=== PATIENT | female | born 1995 | race Caucasian/White ===

== ENCOUNTER 2020-05-13 09:58 | Emergency (ER) | payer OTHER, SELFPAY ==
[2020-05-13] VITALS (10 sets, daily range): BP systolic 121–151; BP diastolic 81–96; PULSE 72–90; RESP 16–19; TEMP 36.5; O2SAT 98–100
--- NOTE | ~2020-05-13 | XR_ITS ---
EXAMINATION: XR chest 1V portable EXAM DATE: 05/13/2020 10:45 INDICATION: Chest pain. TECHNIQUE: Portable AP frontal chest x-ray was obtained. Comparison is made to prior examination from . FINDINGS: The lungs are clear. There are no pleural effusions. The cardiomediastinal silhouette is within normal limits. There is no pneumothorax suspected. The bones and soft tissues are unremarkab le. IMPRESSION: No acute cardiopulmonary findings. Reviewed, dictated and finalized at location A. JACK OPERATOR
--- NOTE | 2020-05-13 10:06 | ECG_ITS ---
Measurements Intervals [place] Rate: 85 P: 31 [place]: 174 QRS: 22 QRSD: 85 T: 29 QT: 378 QTc: 452 Interpretive Statements SINUS RHYTHM DELAYED PRECORDIAL R/S TRANSITION BASELINE ARTIFACT- I, II, III, AVR, AVF BORDERLINE ECG Electronically Signed On 05-13-2020 11:41:46 BOTTOM FINISHER by Jairo Kendrick D.O.
[2020-05-13 10:22] LABS: Basophils Percent Auto 0.2 % (0.2-1.2); Eosinophils Absolute Auto 0.1 K/mm3 (0-0.3); Eosinophils Percent Auto 1.1 % (0-4.4); Hematocrit 43.1 % (37.0-47.0); Hemoglobin 14.8 g/dL (12.0-15.0); Immature Granulocyte Absolute 0.02 K/mm3 (0.00-0.031); Immature Granulocyte Percent A 0.2 % (0-0.5); Lymphocytes Absolute Auto 3.26 K/mm3 (0.9-3.2); Lymphocytes Percent Auto 32.3 % (18.3-44.2); Mean Corpuscular HGB Conc 34.3 g/dl (32-36); Mean Corpuscular Hemoglobin 32.5 pg (26-34); Mean Corpuscular Volume 94.7 fl (80-100); Mean Platelet Volume 10.2 fl (7.4-10.4); Monocytes Absolute Auto 0.7 K/mm3 (0.1-0.6); Monocytes Percent Auto 6.9 % (2.6-8.5); Neutrophils Percent Auto 59.3 % (45.5-73.1); Platelet Count Result 322 k/mm3 (150-375); Red Blood Count 4.55 M/mm3 (4.2-5.4); Red Cell Distribution Width 12.2 % (11.5-14.5); White Blood Count 10.1 K/mm3 (4.5-10.0)
[2020-05-13] MEDS: ASPIRIN 81 MG CHEWABLE TABLET 324 MG PO (10:23)
[2020-05-13 10:30] LABS: INR 0.9; Prothrombin Time 12.2 Seconds (11.1-14.7)
[2020-05-13 10:31] LABS: Partial Thromboplastin Time 30.9 SECONDS (22.3-36.8)
[2020-05-13 10:39] LABS: Anion Gap 9 mmol/L (8-16); Blood Urea Nitrogen 10 mg/dL (7-17); Calcium 9.4 mg/dL (8.4-10.2); Carbon Dioxide 29 mmol/L (22-30); Chloride 102 mmol/L (98-107); Estimated CRCL calculation 143 ml/min; Estimated Glomerular Filt Rate > 60; Glucose 93 mg/dL (65-105); Sodium 140 mmol/L (137-145)
[2020-05-13 10:50] LABS: Troponin I < 0.012 ng/mL (0.000-0.034)
--- NOTE | 2020-05-13 10:54 | ED.CHESTPAIN ---
HPI - Chest Pain General Chief Complaint: Chest Pain <LACHO Hadley Last Filed: 05/13/20 13:54> Stated Complaint: chest tightness, uri symptoms <LACHO Hadley Last Filed: 05/13/20 13:54> Time Seen by Provider: 05/13/20 10:14 <LACHO Hadley Last Filed: 05/13/20 13:54> Source: patient <LACHO Hadley Last Filed: 05/13/20 13:54> Mode of arrival: ambulatory <LACHO Hadley Last Filed: 05/13/20 13:54> Limitations: no limitations <LACHO Hadley Last Filed: 05/13/20 13:54> History of Present Illness HPI narrative: This is a 25 year old female that presents to the ER for right sided upper abdominal/chest pain that started yesterday. Reports the pain is sharp in nature and happens with deep breathing. Does smoke E cigarettes and currently has an IUD. Denies fever, cough, shortness of breath, vomiting, lower extremity edema, or recent travel or surgery. <LACHO Hadley Last Filed: 05/13/20 13:54> Related Data Home Medications: Home Medications Medication Instructions Recorded Confirmed alprazolam 0.25 mg tablet 0.25 mg PO DAILY PRN 01/28/20 01/28/20 buspirone 5 mg tablet 5 mg PO BID 01/28/20 01/28/20 glycopyrrolate 2 mg tablet 2 mg PO BID-TID PRN 01/28/20 01/28/20 sertraline 50 mg tablet 100 mg PO DAILY tablet 01/28/20 01/28/20 <LACHO Hadley Last Filed: 05/13/20 13:54> Allergies/Adverse Reactions: Allergies Allergy/AdvReac Type Severity Reaction Status Date / Time No Known Allergies Allergy Mild Unverified 05/13/20 10:17 <LACHO Hadley Last Filed: 05/13/20 13:54> Review of Systems Review of Systems: Narrative: CONSTITUTIONAL: Denies fever ENT: Denies rhinorrhea, congestion, sore throat CARDIOVASCULAR: Reports chest pain. Denies palpitations, or edema. RESPIRATORY: Denies cough or dyspnea. GASTROINTESTINAL: Denies abdominal pain, nausea, vomiting <Cass Cardoso PA-C - Last Filed: 05/13/20 13:54> All systems reviewed & are unremarkable except as noted in HPI and below <Cass Cardoso PA-C - Last Filed: 05/13/20 13:54> [facility] Past Medical History Medical History: Medical History (Updated 05/13/20 @ 13:35 by Cass Cardoso PA-C) History of anxiety <Cass Cardoso PA-C - Last Filed: 05/13/20 13:54> Surgical History Surgical History: Surgical History (Updated 01/06/20 @ 13:57 by Echo Martins, [facility]) Complication of cardiovascular infusion catheter History of appendectomy History of cardiac radiofrequency ablation <Cass Cardoso PA-C - Last Filed: 05/13/20 13:54> Family History Family History: Family History (Updated 11/24/18 @ 11:06 by DOCTOR UNKNOWN) Father Hypertension Family history of elevated blood lipids Family history of hypercholesterolemia Other Acute myocardial infarction Cerebrovascular accident Family history of cardiovascular disease <Cass Cardoso PA-C - Last Filed: 05/13/20 13:54> Social History Social History: Social History Smoking status: Current every day smoker Alcohol intake: current Gender identity (if verbalized by the patient): Female <Cass Cardoso PA-C - Last Filed: 05/13/20 13:54> Exam Narrative: Exam Narrative: GENERAL: Well-appearing, obese, and in no acute distress. HEAD: Normocephalic, atraumatic. EYES: EOMI. ENT: Nares clear, no rhinorrhea or epistaxis. Mucous membranes moist. Oropharynx without tonsillar hypertrophy exudate or other lesions. Bilateral TMs pearly benitez non-bulging NECK: Supple. No adenopathy or masses. CHEST: Clear to auscultation. No respiratory distress. No wheezes rales or rhonchi HEART: Regular rate and rhythm. No murmur heard. Normal peripheral pulses. ABDOMEN: Soft, nontender, nondistended, normal active bowel sounds. No CVA tenderness EXTREMITIES: Normal range of motion. No edema. SKIN: Warm, dry, no rash. NEURO: No focal deficits. Alert
[2020-05-13 11:24] LABS: Alanine Aminotransferase 20 U/L (4-35); Albumin Level 4.7 g/dL (3.5-5.1); Alkaline Phosphatase 93 U/L (38-126); Aspartate Amino Transferase 26 U/L (14-36); Bilirubin,Total 0.6 mg/dL (0.2-1.3); D Dimer 0.27 ug/mL (<0.48); Lipase 123 U/L (23-300)
[2020-05-13] MEDS: KETOROLAC 15 MG/ML VIAL (*BKC) IV PUSH (11:43)
[2020-05-13 13:39] LABS: Troponin I < 0.012 ng/mL (0.000-0.034)
== END 2020-05-13 14:22 | disposition home or self-care (01) ==
PROVIDERS: Physician Assistant; Emergency Provider General Practice; PCP Family Medicine
DX: R07.1 Chest pain on breathing (principal); F17.290 Nicotine dependence, other tobacco product, uncomplicated; Z97.5 Presence of (intrauterine) contraceptive device; R94.31 Abnormal electrocardiogram [ECG] [EKG]
CPT/HCPCS: 36415; 71045; 80048; 80076; 81025; 83690; 84484; 85025; 85380; 85610; 85730; 93005; 96374; 99284; A9270; J1885

== ENCOUNTER 2021-03-06 10:07 | Observation (INO) | payer OTHER, SELFPAY ==
[2021-03-06] VITALS (15 sets, daily range): BP systolic 100–138; BP diastolic 70–107; PULSE 80–164; RESP 12–24; TEMP 36.6–36.9; O2SAT 98–100; BMI 47.4
--- NOTE | ~2021-03-06 | XR_ITS ---
EXAMINATION: XR chest 2V 03/06/2021 11:12 INDICATION: Chest palpitations PROCEDURE: 2 view chest COMPARISON: 05/13/2020 FINDINGS: The lungs are clear. The cardiomediastinal silhouette is within normal limits. There are no pleural effusions. There is no pneumothorax suspected. IMPRESSION: 1: NO ACUTE CARDIOPULMONARY DISEASE. Reviewed, dictated and finalized at location B.
--- NOTE | 2021-03-06 10:15 | ECG_ITS ---
Measurements Intervals [place] Rate: 162 P: [place]: 0 QRS: 48 QRSD: 86 T: 29 QT: 253 QTc: 415 Interpretive Statements ATRIAL FLUTTER/TACHYCARDIA WITH RAPID VENTRICULAR RESPONSE VENTRICULAR PREMATURE COMPLEXES LOW QRS VOLTAGE IN PRECORDIAL LEADS BORDERLINE R WAVE PROGRESSION, ANTERIOR LEADS CONSIDER INFERIOR INFARCT, AGE INDETERMINATE ABNORMAL ECG Electronically Signed On 03-06-2021 15:51:50 CDT by Jairo Kendrick D.O.
[2021-03-06] MEDS: dilTIAZem HCl INJ 25 MG/5 ML VIAL 15 MG IV PUSH (10:41)
[2021-03-06 10:52] LABS: Basophils Percent Auto 0.2 % (0.2-1.2); Eosinophils Absolute Auto 0.1 K/mm3 (0-0.3); Hematocrit 44.5 % (37.0-47.0); Hemoglobin 15.7 g/dL (12.0-15.0); Immature Granulocyte Absolute 0.04 K/mm3 (0.00-0.031); Immature Granulocyte Percent A 0.4 % (0-0.5); Lymphocytes Absolute Auto 3.45 K/mm3 (0.9-3.2); Lymphocytes Percent Auto 34.2 % (18.3-44.2); Mean Corpuscular HGB Conc 35.3 g/dl (32-36); Mean Corpuscular Hemoglobin 33.3 pg (26-34); Mean Corpuscular Volume 94.3 fl (80-100); Mean Platelet Volume 10.3 fl (7.4-10.4); Monocytes Absolute Auto 0.5 K/mm3 (0.1-0.6); Monocytes Percent Auto 4.9 % (2.6-8.5); Neutrophils Percent Auto 59.3 % (45.5-73.1); Platelet Count Result 333 k/mm3 (150-375); Red Blood Count 4.72 M/mm3 (4.2-5.4); Red Cell Distribution Width 11.9 % (11.5-14.5); White Blood Count 10.1 K/mm3 (4.5-10.0)
[2021-03-06 11:01] LABS: INR 0.9; Prothrombin Time 11.8 Seconds (11.1-14.7)
[2021-03-06 11:02] LABS: Partial Thromboplastin Time 29.9 SECONDS (22.3-36.8)
[2021-03-06 11:03] LABS: Anion Gap 10 mmol/L (8-16); Blood Urea Nitrogen 8 mg/dL (7-17); Calcium 9.4 mg/dL (8.4-10.2); Carbon Dioxide 22 mmol/L (22-30); Chloride 107 mmol/L (98-107); Estimated CRCL calculation 170 ml/min; Estimated Glomerular Filt Rate > 60; Glucose 116 mg/dL (65-110); Potassium 4.2 mmol/L (3.4-5.0); Sodium 139 mmol/L (137-145)
[2021-03-06 11:14] LABS: Troponin I < 0.012 ng/mL (0.000-0.034)
[2021-03-06] MEDS: METOPROLOL TARTRATE INJ 5 MG/5 ML VIAL IV PUSH (11:16)
--- NOTE | 2021-03-06 11:22 | ED.GENADULT ---
HPI - General Adult General Chief complaint: Arrhythmia/Palpitations Stated complaint: sob/palpitations Time Seen by Provider: 03/06/21 10:25 History of Present Illness HPI narrative: Patient is a 26-year-old female who presents ER with palpitations. Reports it began last night but she just tried to sleep through them. They are persistent today so she have to come to the ER for further evaluation. She reports has been having palpitations over the last week and has been getting lightheaded with them. She has history of SVT and has had a cardiac ablation. She sees Dr. Kendrick. Reports taking flecainide to help slow down her rate this morning. She has no chest pain or chest pressure. No nausea or vomiting. She is anxious. Her cardiac ablation was 4 years ago. Currently wearing a Holter monitor. Related Data Home Medications Medication Instructions Recorded Confirmed sertraline 50 mg tablet 100 mg PO DAILY tablet 01/28/20 02/08/21 alprazolam 0.25 mg tablet 0.5 mg PO DAILY PRN tablet 02/08/21 02/08/21 buspirone 5 mg tablet 10 mg PO BID tablet 02/08/21 02/08/21 glycopyrrolate 2 mg tablet 1 mg PO BID PRN tablet 02/08/21 02/08/21 Allergies Allergy/AdvReac Type Severity Reaction Status Date / Time No Known Allergies Allergy Mild Verified 02/08/21 14:22 Review of Systems Review of Systems: All systems reviewed & are unremarkable except as noted in HPI and below Constitutional: Constitutional: Denies chills, Denies fever(s) and Denies weakness ENT: Denies nasal congestion and Denies sore throat Cardiovascular: Cardiovascular: Denies chest pain, Reports rapid heart rate and Denies radiating jaw, neck or arm pain Respiratory: Respiratory: Denies cough, Denies dyspnea and Denies wheezing Gastrointestinal: Gastrointestinal: Denies abdominal pain, Denies nausea and Denies vomiting Neurologic: Reports dizziness, Denies focal weakness and Denies numbness Psychiatric: Psychiatric: Reports anxiety PMFSH Past Medical History Medical History (Updated 03/06/21 @ 17:08 by Mustapha Hines MD) History of anxiety SVT (supraventricular tachycardia) Surgical History Surgical History Complication of cardiovascular infusion catheter History of appendectomy History of cardiac radiofrequency ablation Family History Family History Father Hypertension Family history of elevated blood lipids Family history of hypercholesterolemia Other Acute myocardial infarction Cerebrovascular accident Family history of cardiovascular disease Social History Social History Smoking status: Never smoker Tobacco type: e-cigarettes/vaping Alcohol intake: current Gender identity (if verbalized by the patient): Female Exam Narrative: GENERAL: Anxious-appearing, well-nourished, and in mild distress. HEAD: Normocephalic, atraumatic. ENT: Mucous membranes moist. NECK: Supple. CHEST: Clear to auscultation. No respiratory distress. HEART: Tachycardic and irregular. Normal peripheral pulses. ABDOMEN: Soft, nontender, nondistended. EXTREMITIES: Normal range of motion. No edema. SKIN: Warm, dry, no rash. NEURO: Alert and oriented x3. PSYCH: Normal mood and affect. Course Course Emergency Course: Difficult to discern if patient is having atrial flutter or atrial fibrillation. Patient received diltiazem 15 mg IV push, metoprolol 5 mg IV, and flecainide 50 mg orally. No significant response. Patient started on diltiazem drip. Discussed case with Dr. Azul who is excepted the patient primarily for care. Vital Signs Vital signs: Vital Signs Temperature 98 F 03/06/21 10:36 Pulse Rate 164 H 03/06/21 10:36 Respiratory Rate 18 03/06/21 10:36 Blood Pressure 131/107 H 03/06/21 10:36 Pulse Oximetry 100 03/06/21 10:36 Temperature 98 F 03/06/21 10
[2021-03-06] MEDS: FLECAINIDE ACETATE 50 MG TABLET PO (12:29)
--- NOTE | 2021-03-06 15:29 | PC.NURSE ---
Called lab to add on MG
[2021-03-06 16:06] LABS: Magnesium 1.9 mg/dL (1.6-2.3)
[2021-03-06 16:10] LABS: Troponin I 0.028 ng/mL (0.000-0.034)
--- NOTE | 2021-03-06 16:46 | PM.IMHP ---
H&P: HPI History of Present Illness Date/Time: 03/06/21 16:46 25 yr old woman who is my regular cardiology patient presented to ED with symptoms of sob and dizziness. She has a history of radiofrequency ablation for PAT by Dr. Chaidez at [facility], obesity, anxiety. Her is at bedside in ED. States that last night she noted abrupt onset of dizziness and sob. She took Flecainide 50 mg as she is using it as a pill in a pocket but her symptoms persisted. This morning she took another dose of Flecainide and came in to ED for evaluation. She was noted to be in atrial tachycardia at 160 bpm. She was given Flecainide 50 mg dose and started on Cardizem drip. She is still in atrial tachycardia at 110-130 bpm. She used to be on Coreg and Flecainide even after ablation since she was told she had a weak heart at that time. She admits to having anxiety/panic attacks on Sertaline. Admits to snoring, and some daytime sleepiness. Denies chest pain, orthopnea, PND, edema, dizziness. 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 05/13/20 EKG: Sinus rhythm, delayed precordial R/S transition. EKG (Sinus rhythm at 93 bpm, minimal q waves in inferior leads.) - 01/29/2019 EKG (Sinus rhythm.) - 11/13/2018 EVR (30 day event monitor: Sinus rhythm, HR range 50-169 bpm; average 80 bpm; <1% PAC's and 1% PVC's.) - 11/13/2018 Ablations (PAT ablation) with Dr. Chaidez and [facility]. - 10/2015 Chief Complaint: SOB, dizziness Review of Systems Review of Systems: All systems reviewed & are unremarkable except as noted in HPI and below Constitutional: Constitutional: Reports as per HPI, Denies chills, Reports fatigue and Denies fever(s) Cardiovascular: Cardiovascular: Reports as per HPI, Denies chest pain, Denies irregular heart rhythm, Denies leg edema and Reports lightheadedness Respiratory: Respiratory: Reports as per HPI and Reports dyspnea Gastrointestinal: Gastrointestinal: Reports as per HPI and Denies abdominal pain Genitourinary: Genitourinary: Reports as per HPI and Denies dysuria Musculoskeletal: Musculoskeletal: Reports as per HPI Neurologic: Reports as per HPI, Reports dizziness and Denies syncope [facility] Past Medical History Medical History (Updated 03/06/21 @ 16:52 by Jairo Kendrick DO) History of anxiety SVT (supraventricular tachycardia) Surgical History Surgical History Complication of cardiovascular infusion catheter History of appendectomy History of cardiac radiofrequency ablation Family History Family History Father Hypertension Family history of elevated blood lipids Family history of hypercholesterolemia Other Acute myocardial infarction Cerebrovascular accident Family history of cardiovascular disease Social History Social History Smoking status: Never smoker Tobacco type: e-cigarettes/vaping Alcohol intake: current Gender identity (if verbalized by the patient): Female Meds Home Medications and Allergies Home Medications Medication Instructions Recorded Confirmed Type sertraline 50 mg tablet 100 mg PO DAILY tablet 01/28/20 02/08/21 History alprazolam 0.25 mg tablet 0.5 mg PO DAILY PRN tablet 02/08/21 02/08/21 History buspirone 5 mg tablet 10 mg PO BID tablet 02/08/21 02/08/21 History flecainide 50 mg tablet 50 mg PO ONCE #30 tablet 02/08/21 02/08/21 Rx glycopyrrolate 2 mg tablet 1 mg PO BID PRN tablet 02/08/21 02/08/21 History Allergies Allergy/AdvReac Type Severity Reaction Status Date / Time No Known Allergies Allergy Mild Verified 02/08/21 14:22 Vital Signs Vital Signs - 24 hr 03/06/21 10:36 03/06/21 11:05 03/06/21 11:16 Temperature 98 F Pulse Rate 164 H 138 H 135 H Res
--- NOTE | 2021-03-06 17:55 | ADMGEN ---
This patient, Babs Toro, was admitted to IMU Room 210-01. Patient/family oriented to hospital policies and general routines including ID bracelet, bed and alarms, visiting hours, pain management, procedures, bathroom and other care routines, personal items, smoking policy, room service/diet, and visiting hours. Information on how to activate the Rapid Response Team has been discussed. Patient/Family are encouraged to report perceived risks to care and to ask questions if they do not understand what they are told or what they should do.
[2021-03-06] MEDS: METOPROLOL TARTRATE 25 MG TABLET PO (18:41)
[2021-03-06 19:03] LABS: Troponin I 0.027 ng/mL (0.000-0.034)
[2021-03-06] MEDS: FLECAINIDE ACETATE 100 MG TABLET PO (20:15)
[2021-03-06] MEDS: busPIRone HCL 10 MG TABLET PO (21:52)
[2021-03-06] MEDS: GLYCOPYRROLATE 1 MG TABLET PO (21:52)
[2021-03-07] VITALS (12 sets, daily range): BP systolic 105–135; BP diastolic 73; PULSE 69–115; RESP 14–20; TEMP 36.3–36.4; O2SAT 98–99
--- NOTE | 2021-03-07 | ECHO_ITS ---
Patient Info Name: Babs Toro Age: 26 years : 1995 Gender: Female Ht: 61 in Wt: 262 lbs BSA: 2.34 m2 HR: 91 bpm BP: 135 / 73 mmHg Exam Date: 03/07/2021 9:17 AM Exam Location: [facility] Pulmonary Patient Status: Inpatient Admit Date: 03/06/2021 Staff Ordering Physician: Jairo Kendrick DO Metal Tube Cutter: Larry Wagner, KIKI, RT Attending Provider: Jairo Kendrick DO Referring Physician: Aroldo GRACE; Exam Type: CA echo dop color flow w con Study Info Indications R00.2 - Palpitations Complete two-dimensional, color flow and Doppler transthoracic echocardiogram is performed with contrast to opacify the left ventricle and to improve the deliniation of the left ventricle endocardial borders. Summary 1. Left ventricular chamber dimension is normal. 2. Definity contrast administered improved wall motion interpretation. 3. Left ventricular systolic function is normal, estimated at 55-60%. 4. The left ventricular diastolic function is normal. 5. E/e' 5 is not elevated. Left Ventricle E/e' 5 is not elevated. Definity contrast administered improved wall motion interpretation. Left ventricular chamber dimension is normal. Left ventricular systolic function is normal, estimated at 55-60%. The left ventricular diastolic function is normal. Right Ventricle Right ventricular chamber dimension is normal. Right ventricular systolic function is normal. Left Atria Left atrial chamber dimension is normal. Right Atria Right atrial chamber dimension is normal. Aortic Valve The aortic valve is probable trileaflet. There is no aortic valve stenosis. There is no aortic valve regurgitation. Pulmonic Valve There is no pulmonic regurgitation. Mitral Valve There is no mitral valve stenosis. There is no mitral valve regurgitation. Tricuspid Valve There is no tricuspid valve regurgitation. Pericardium/Pleural There is no pericardial effusion. Inferior Vena Cava Normal inferior vena cava with >50% collapse upon inspiration consistent with normal right atrial pressure, 5 mmHg. Aorta The aortic root size at the sinus of Valsalva is normal. Left Ventricular Outflow Tract Name Value Normal LVOT 2D LVOT Diameter 2.14 cm Mitral Valve Name Value Normal MV Doppler MV Decel Shannon 585.41 cm/s2 MV PHT 0 s MV Area (PHT) 5.21 cm2 4.00-5.00 MV Diastolic Function MV E Peak Velocity 85.23 cm/s MV A Peak Velocity 0.62 cm/s MV E/A 137.31 MV Decel Time 0 s MV Annular TDI MV E/e' (Septal) 5.93 <=8.00 MV E/e' (Lateral) 4.97 <=8.00 MV E/e
[2021-03-07] MEDS: METOPROLOL TARTRATE 25 MG TABLET PO ×2 (00:09→05:20)
--- NOTE | 2021-03-07 01:57 | ECG_ITS ---
Measurements Intervals [place] Rate: 81 P: 42 [place]: 215 QRS: 52 QRSD: 102 T: 55 QT: 408 QTc: 475 Interpretive Statements SINUS RHYTHM WITH FIRST DEGREE AV BLOCK ATRIAL COUPLET, FREQUENT ATRIAL PREMATURE COMPLEXES AND VENTRICULAR PREMATURE COMPLEX BASELINE ARTIFACT- I, II, III, AVR, AVL, AVF ABNORMAL ECG Electronically Signed On 03-07-2021 6:09:32 CDT by Jairo Kendrick D.O.
[2021-03-07] MEDS: busPIRone HCL 10 MG TABLET PO (08:53)
[2021-03-07] MEDS: FLECAINIDE ACETATE 100 MG TABLET PO (08:53)
[2021-03-07] MEDS: GLYCOPYRROLATE 1 MG TABLET PO (08:53)
[2021-03-07] MEDS: SERTRALINE HCL 50 MG TABLET 100 MG PO (08:54)
[2021-03-07] MEDS: METOPROLOL TARTRATE 50 MG TAB PO (08:55)
[2021-03-07] MEDS: ASPIRIN 325 MG ENTERIC TABLET PO (08:56)
--- NOTE | 2021-03-07 09:00 | ECG_ITS ---
Measurements Intervals [place] Rate: 86 P: [place]: 0 QRS: 32 QRSD: 94 T: 31 QT: 404 QTc: 485 Interpretive Statements ATRIAL FLUTTER/TACHYCARDIA WITH VARIABLE BLOCK INCOMPLETE RIGHT BUNDLE BRANCH BLOCK CONSIDER INFERIOR INFARCT, AGE INDETERMINATE ABNORMAL ECG Electronically Signed On 03-07-2021 9:24:49 CDT by Jairo Kendrick D.O.
[2021-03-07] MEDS: PERFLUTREN LIPID MICROSPHERES 1.5 ML VIAL DILUTED TO 10 ML TOTAL VOLUME IV PUSH (09:57)
--- NOTE | 2021-03-07 13:57 | PM.DS ---
DS: Admitting Diagnosis Discharge Date 03/07/21 Admitting Diagnosis Atrial tachycardia/flutter DS: Summary Hospital Course Hospital Course: Patient was admitted through ER with dizziness and sob and found to be in rapid atrial tachycardia/flutter. She was started on Cardizem drip along with Metoprolol Tartate 25 mg every 6 hours for rate control and continued on higher dose of Flecainide 100 mg every 12 hours. She did cardiovert to sinus rhythm with frequent PAC's. HR 80-90 bpm. BP stable. No longer having dizziness or sob. She does feel palpitations with PAC's. Echo shows EF 55-60% with no wall motion abnormalities. Patient will be discharged home to f/u with [facility] in 1 week. Medications: Refer to discharge med list. Status: Stable. Disp: Home. Activity:As tolerated. Diet: Regular. Time Spent with Patient Time attestation: Total time spent providing and/or coordinating discharge services: Exam Const: General: cooperative, healthy appearing and comfortable Nutritional Appearance: obese Resp: Auscultation: clear to auscultation bilaterally, no crackles, no rales, no rhonchi and no wheezes Cardio: Jugular venous distension: no JVD Rate: regular rate Rhythm: regular rhythm Heart sounds: no murmurs Peripheral pulses: dorsalis pedis present GI: GI Palp: No abdominal tenderness and Yes Soft to palpation Neuro: General: oriented to person, oriented to place and oriented to time Extrem: Right lower extremity: no edema Left lower extremity: no edema DS: Data Data Completed and Pending Labs on day of discharge: Labs from last 24 hours 03/06/21 03/06/21 03/06/21 18:30 15:26 15:26 Magnesium 1.9 Troponin I 0.027 0.028 D Discharge Plan Discharge Attending physician on discharge: Jairo Kendrick Discharging Clinician: Jairo Kendrick Patient Disposition: Home, Self-Care Activity: as tolerated Diet: regular Patient Instructions: Antibiotic Form Stand Alone Forms: General Discharge Information Follow-up/Referrals: Jairo Kendrick, [Physician] - (F/U 1 week) Discharge Medications: New flecainide 100 mg Tablet 100 mg PO Q12HR Qty: 30 RF: 5 metoprolol tartrate 50 mg Tablet 50 mg PO Q12HR Qty: 30 RF: 5 aspirin 325 mg Tablet,Delayed Release (Dr/Ec) 325 mg PO QAM Qty: 30 RF: 5 Continued sertraline 50 mg tablet 100 mg PO DAILY RF: 0 alprazolam 0.25 mg tablet 0.5 mg PO DAILY PRN (Reason: anxiety) RF: 0 buspirone 5 mg tablet 10 mg PO BID RF: 0 Discontinued glycopyrrolate 2 mg tablet 1 mg PO BID RF: 0 flecainide 50 mg tablet 50 mg PO ONCE Qty: 30 RF: 0 Date of admission: 03/06/21 15:01 Primary Care Provider: Chip,Eli Turcios Admitting Provider: Jairo Kendrick Attending physician on admission: Jairo Kendrick Condition: Stable
== END 2021-03-07 14:40 | disposition home or self-care (01) ==
LOC: ANHED 10:29 → ANHIMU 15:37
PROVIDERS: Admitting Provider Internal Medicine Cardiovascular Disease; Emergency Provider Emergency Medicine; PCP Family Medicine; Visit Provider Internal Medicine Cardiovascular Disease
DX: I47.1 Supraventricular tachycardia (principal); R00.2 Palpitations; E66.9 Obesity, unspecified; G47.10 Hypersomnia, unspecified; F41.9 Anxiety disorder, unspecified; R06.02 Shortness of breath; Z68.42 Body mass index [BMI] 45.0-49.9, adult
CPT/HCPCS: 36415; 71046; 80048; 83735; 84443; 84484; 85025; 85610; 85730; 93005; 96365; 96366; 96375; 96376; 99285; A9270; C8929; G0378; Q9957

== ENCOUNTER 2022-04-13 11:38 | Emergency (ER) | payer OTHER, SELFPAY ==
[2022-04-13 12:27] VITALS: BP 133/75; PULSE 101; RESP 20; TEMP 37.1; O2SAT 98
--- NOTE | 2022-04-13 13:27 | ED.URI ---
HPI - URI/Sore Throat General Chief Complaint: Upper Respiratory Infection Stated Complaint: fatigue,dry cough,runny nose,sob Time Seen by Provider: 04/13/22 13:34 Source: patient and RN notes reviewed Mode of arrival: ambulatory Limitations: no limitations History of Present Illness HPI Narrative: 27-year-old female presents with concern for 3-4 day history of general malaise, fatigue, cough, rhinorrhea, shortness of breath. Reports her sister was positive for RSV, her dad was positive for COVID. She reports she has been taking ibuprofen [id number] without relief. MD elicited complaint: cough and nasal congestion Related Data Home Medications Medication Instructions Recorded Confirmed sertraline 50 mg tablet 100 mg PO DAILY 01/28/20 04/13/22 alprazolam 0.25 mg tablet 0.5 mg PO DAILY PRN anxiety 02/08/21 04/13/22 buspirone 5 mg tablet 10 mg PO BID 02/08/21 04/13/22 flecainide 100 mg tablet 50 mg PO Q12HR 03/17/21 04/13/22 Allergies Allergy/AdvReac Type Severity Reaction Status Date / Time No Known Allergies Allergy Mild Verified 04/13/22 13:24 Review of Systems Review of Systems: CONSTITUTIONAL: Reports malaise. Denies chills, sweats, or fever. EYES: Denies visual changes, redness, or discharge. ENT: Reports rhinorrhea, congestion. Denies sinus pain, otalgia and sore throat. CARDIOVASCULAR: Denies chest pain, palpitations, or edema. RESPIRATORY: Reports cough, dyspnea. GASTROINTESTINAL: Denies abdominal pain, nausea, vomiting, diarrhea SKIN: Denies rash or itching. MUSCULOSKELETAL: Reports myalgia. NEUROLOGIC: Denies headache. All systems reviewed & are unremarkable except as noted in HPI and below PMFSH Past Medical History Medical History History of anxiety SVT (supraventricular tachycardia) Surgical History Surgical History Complication of cardiovascular infusion catheter History of appendectomy History of cardiac radiofrequency ablation Family History Family History Father Hypertension Family history of elevated blood lipids Family history of hypercholesterolemia Other Acute myocardial infarction Cerebrovascular accident Family history of cardiovascular disease Social History Social History Smoking status: Current every day smoker Tobacco type: e-cigarettes/vaping Additional smoking assessment comments: Daily vape use Alcohol intake: current Drinks per week: 6 Substance use: current Substance use type: marijuana Gender identity (if verbalized by the patient): Female Spiritual care concerns: No Comments At time of signature, agree with nursing past medical, surgical, social and family history. There is no relevant family history pertinent to the presenting complaint Exam Narrative: GENERAL: Nontoxic-appearing and in no acute distress. HEAD: Normocephalic EYES: PERRLA, conjunctivae clear ENT: Nares clear, turbinates edematous and erythematous, clear discharge. Mucous membranes moist. TM pearly benitez with sharp light reflex bilaterally; no tragal tenderness. Oropharynx not erythematous without lesions. Tonsils not enlarged and without exudate, no drooling, no hoarseness, no trismus, uvula midline. NECK: Supple. No lymphadenopathy CHEST: Clear to auscultation, breath sounds equal. No wheezing, rhonchi, rales, or stridor. No respiratory distress, speaks in full sentences. HEART: Regular rate and rhythm. No murmur heard. SKIN: Warm, dry, no rash. NEURO: Alert and oriented x3. PSYCH: Normal mood and affect Course Course Emergency Course: Patient is aware of diagnosis, understands and agrees to treatment plan. Anticipatory guidance given. Patient agrees to follow-up as directed and is aware of reasons to seek care at the emergency department.
== END 2022-04-13 13:56 | disposition home or self-care (01) ==
PROVIDERS: Emergency Provider Nurse Practitioner; PCP Family Medicine
DX: J11.1 Influenza due to unidentified influenza virus with other respiratory manifestations (principal); Z20.822 Contact with and (suspected) exposure to COVID-19; F41.9 Anxiety disorder, unspecified; F17.290 Nicotine dependence, other tobacco product, uncomplicated
CPT/HCPCS: 87420; 87426; 87804; 99213; C9803; G0463

== ENCOUNTER 2022-09-19 08:43 | Outpatient (CLI) | payer OTHER, SELFPAY ==
--- NOTE | ~2022-09-19 | US_ITS ---
EXAMINATION: US OB <= 14 weeks fetus DATE: 09/19/2022 10:09 INDICATION: Viability. TECHNIQUE: Real-time transabdominal and transvaginal pelvic ultrasound was performed. COMPARISON: None. FINDINGS: TRANSABDOMINAL ULTRASOUND: The uterus measures 9.4 x 4.4 x 4.6 cm. TRANSVAGINAL ULTRASOUND: There is a cyst in the endometrial complex with intradecidual sign with mean diameter of 9 mm, which may be a gestational sac correlating with an estimated gestational age of 5 weeks and 5 days +/- 4 days. No yolk sac or pole is identified. The right ovary measures 3.7 x 1.7 x 2.2 cm. The left ovary measures 2.9 x 2.0 x 2.3 cm. There is normal vascular flow in the ovarie s. There is no free fluid in the pelvis. IMPRESSION: 1. Cyst in the endometrial complex, most likely a gestational sac with estimated date of delivery of 05/17/2023. Reviewed, dictated and finalized at location A. IMPRESSION: 1. Cyst in the endometrial complex, most likely a gestational sac with estimat ed date of delivery of 05/17/2023.
== END 2022-09-19 08:44 | disposition home or self-care (01) ==
PROVIDERS: PCP Family Medicine; Visit Provider Obstetrics & Gynecology
DX: Z36.9 Encounter for antenatal screening, unspecified (principal); Z3A.00 Weeks of gestation of pregnancy not specified
CPT/HCPCS: 76801

== ENCOUNTER 2022-10-03 01:01 | Day surgery (SDC) | payer OTHER, SELFPAY ==
[2022-10-02 08:29] VITALS: BMI 45.7
--- NOTE | 2022-10-02 08:40 | PC.NURSE ---
Report to the Outpatient Waiting Room, entrance under the green pavilion located off [address], at time 1100 on date 10/03/22. Planned Procedure Time: 1300. Time changes happen often and if your time is changed the preop area will call you the afternoon before. - You and your visitor will be asked to self-screen and do not enter if you have any COVID symptoms. - A mask is optional within the hospital at this time. Patients may have clear liquids (water, carbonated beverages, clear teas, apple juice) until 3 hours prior to surgery with a maximum of 20 ounces. - No food from midnight until time of surgery Take the following medications with a SIP of water the morning of surgery: BUSPIRONE, SERTRALINE, XANAX NEEDED DO NOT STOP ANY OF YOUR OTHER PRESCRIPTION MEDICATIONS PRIOR TO SURGERY EXCEPT THE FOLLOWING Medications to discontinue per physician: N/A Date to take last dose: N/A Please no make-up, nail amharic, hairspray, perfume, deodorant, or body powder the day of surgery. No jewelry (including any body piercings) or valuables the day of surgery, leave them at home. Please take a shower or bath the night before, or the morning of, surgery with an antibacterial soap. Wear comfortable, loose fitting clothing. - Jewelry must be removed prior to entering the operating room. Rings and piercings that are not removed may be cut off. - The hospital will not accept responsibility for valuables. - Please leave all valuables, including medications, at home the day of surgery. If you are going home after surgery, a licensed drivers license examiner must drive you home. - NO public transportation without another adult if you receive anesthesia. - We recommend that an adult stay with you for 24 hours following discharge. - We also recommend that you do not drive, make important decision, drink alcoholic beverages, or take any drugs that were not prescribed by your health care provider for at least 24 hours after your discharge time. Follow any additional instructions given to you from your surgeon. If you or anyone in your household have experienced Covid symptoms in the past week, please notify your surgeon or the nurse liaison at the phone number below for possible testing. Telephone instructions given to PT Misbah GARCIA and asked if any additional questions and then verbalized understanding. Patient advised to call surgeon office or pre surgery nurse liaison [phone] if any additional questions.
--- NOTE | 2022-10-02 13:18 | P.HP_ITS ---
H&P: HPI History of Present Illness Date/Time: 10/02/22 13:18 Chief Complaint: First-trimester SAB Narrative: a 27 year 1 para 0 who is admitted for suction D&C secondary to incomplete A/B. She an ultrasound proving no growth over 2 weeks with an abnormal . Risks benefits reviewed [facility] Past Medical History Medical History History of anxiety SVT (supraventricular tachycardia) Surgical History Surgical History Complication of cardiovascular infusion catheter History of appendectomy History of cardiac radiofrequency ablation Family History Family History Father Hypertension Family history of elevated blood lipids Family history of hypercholesterolemia Other Acute myocardial infarction Cerebrovascular accident Family history of cardiovascular disease Social History Social History Smoking status: Former smoker Tobacco type: e-cigarettes/vaping Additional smoking assessment comments: Daily vape use Alcohol intake: current Drinks per week: 6 Alcohol use details: WINE 4X/WEEK WHEN NOT Substance use: current Substance use type: marijuana Living arrangements: with family Gender identity (if verbalized by the patient): Female Spiritual care concerns: No Meds Home Medications and Allergies Home Medications Medication Instructions Recorded Confirmed Type sertraline 50 mg tablet 100 mg PO DAILY 01/28/20 10/02/22 History alprazolam 0.25 mg tablet 0.5 mg PO DAILY PRN anxiety 02/08/21 10/02/22 History buspirone 5 mg tablet 10 mg PO BID 02/08/21 10/02/22 History Allergies Allergy/AdvReac Type Severity Reaction Status Date / Time No Known Allergies Allergy Mild Verified 10/02/22 08:30 Exam Const: General: cooperative, healthy appearing, comfortable and average body habitus Orientation/consciousness: oriented to person, oriented to place and oriented to time Resp: Effort & Inspection: normal respiratory effort Cardio: Rate: regular rate Rhythm: regular rhythm Heart sounds: S1 normal heart sound present and S2 normal heart sound present GI: Inspection: normal to inspection : External Female Exam: normal external appearance Speculum Exam - Vagina: normal appearance of the vagina and vaginal bleeding Speculum Exam - Cervix: normal appearance of the cervix Bimanual exam- vagina & uterus: enlarged Assessment and Plan Assessment and plan (1) Incomplete : Code(s): O03.4 - Incomplete spontaneous without complication Status: Acute Plan suction dilatation curettage
--- NOTE | 2022-10-02 14:08 | WPDANESEPPF ---
Anes - Initial Pre Proc Eval Procedure: Operation Date: 10/03/22 13:00 Proposed Procedures p Suction Dilation and Curettage - Billy Stephenson MD Date/Time: 10/02/22 14:08 Surgeon: Billy Stephenson MD Pre Op Diagnosis: missed ab Patient Data Age: 27 Gender: F Height: 1.57 m Weight: 113.4 kg Allergies Allergy/AdvReac Type Severity Reaction Status Date / Time No Known Allergies Allergy Mild Verified 10/03/22 11:01 Home Medications Medication Instructions Recorded Confirmed Type sertraline 50 mg tablet 100 mg PO DAILY 01/28/20 10/02/22 History alprazolam 0.25 mg tablet 0.5 mg PO DAILY PRN anxiety 02/08/21 10/02/22 History buspirone 5 mg tablet 10 mg PO BID 02/08/21 10/02/22 History hydrocodone 5 mg-acetaminophen 325 1 tablet PO Q4H PRN pain #14 tabs 10/03/22 Rx mg tablet Patient hx anesthesia problems: none Family hx anesthesia problems: none Results Review: All pre-operative results and documents have been reviewed as part of the pre-operative evaluation. [facility] Past Medical History Medical History (Updated 10/02/22 @ 14:09 by Fausto Goldstein MD) Anxiety Atrial flutter with rapid ventricular response ablation 2020 Engages in vaping History of anxiety Hypersomnia Obesity PAT (paroxysmal atrial tachycardia) SVT (supraventricular tachycardia) Surgical History Surgical History Complication of cardiovascular infusion catheter History of appendectomy History of cardiac radiofrequency ablation Family History Family History Father Hypertension Family history of elevated blood lipids Family history of hypercholesterolemia Other Acute myocardial infarction Cerebrovascular accident Family history of cardiovascular disease Social History Social History Smoking status: Former smoker Tobacco type: e-cigarettes/vaping Additional smoking assessment comments: Daily vape use Alcohol intake: current Drinks per week: 6 Alcohol use details: WINE 4X/WEEK WHEN NOT Substance use: current Substance use type: marijuana Living arrangements: with family Gender identity (if verbalized by the patient): Female Spiritual care concerns: No Anes - Eval Final PreProcedure Day of Procedure 10/02/22 14:08 Patient weight: morbidly obese Heart: regular rate and rhythm Lungs: clear to auscultation and normal air movement Airway: Mallampati scale class II Neurological: alert and oriented Last oral intake: >/= 8 hours ASA classification: III Emergent: no Anesthetic plan: proceed Anesthesia type and monitoring: general GIVS Results Review: All pre-operative results and documents have been reviewed as part of the pre-operative evaluation. Informed Consent: The patient's anesthetic plan and its attendant risks and benefits were discussed with the patient/family/POA. Questions were solicited and answers provided to the satisfaction of the patient/family/POA.
--- NOTE | 2022-10-03 05:11 | WPDHPUPDATE1 ---
History and Physical Update Update Date/Time: 10/03/22 05:11 History and Physical has been reviewed, including an updated exam of the patient. There are NO changes in the patient's condition. Risks, benefits, and alternatives have been discussed and questions answered. Patient agrees to proceed with procedure.
[2022-10-03] MEDS: ACETAMINOPHEN 500 MG TABLET 1000 MG PO (11:32)
[2022-10-03] MEDS: LACTATED RINGERS 1,000 ML 30 ML IV CONT (11:33)
[2022-10-03 11:36] VITALS: BP 127/78; PULSE 92; RESP 18; TEMP 36.9; O2SAT 98
[2022-10-03 11:48] LABS: Hematocrit 36.2 % (37.0-47.0); Hemoglobin 12.2 g/dL (12.0-15.0)
--- NOTE | 2022-10-03 13:57 | W.PM.PROC2 ---
Procedure Note - Detailed Date of Procedure 10/03/22 Pre-op Diagnosis missed ab Post-op Diagnosis Same Procedure Performed Suction dilatation curettage Surgeon Billy Stephenson MD Anesthesia MAC and Local Indications 27-year-old female with first-trimester incomplete AB Findings uterus sounded to the 9cm. Tissue consistent with products of conception Description of Procedure patient was prepped draped in the normal sterile fashion placed in dorsal lithotomy position. Under excellent IV sedation weighted speculum placed posterior fornix vagina. Anterior lip of cervix grasped with single-tooth tenaculum 2.5cc 1% xylocaine anesthesia placed at 2, 4, 8, 10:00 a.m. of the cervix. Uterus sounded to 9cm. Serial dilatation with fragmented dilators performed followed by passes the 10. Curved suction curette. A good grating sound was heard the instruments were withdrawn. Blood loss estimated 25cc. All sponge, needle, instrument counts were correct. She is Rh positive and does not require RhoGAM. There were no immediate complications Estimated Blood Loss 25 Drains No Packing No Pathology Yes Complications No immediate complications Condition Stable Disposition PACU
[2022-10-03 14:03] VITALS: BP 117/65; PULSE 92; RESP 16; O2SAT 97
[2022-10-03 14:30] VITALS: BP 107/64; PULSE 75; RESP 16; O2SAT 99
[2022-10-03] MEDS: oxyCODONE HCL (*CRX) 5 MG TAB IR PO (14:40)
[2022-10-03 15:00] VITALS: BP 130/73; PULSE 65; RESP 18
== END 2022-10-03 15:24 | disposition home or self-care (01) ==
PROVIDERS: PCP Family Medicine; Visit Provider Obstetrics & Gynecology
PROC: (CPT 59820; principal; 2022-10-03 13:00)
DX: O02.1 Missed abortion (principal); F17.290 Nicotine dependence, other tobacco product, uncomplicated
CPT/HCPCS: 59820; 36415; 85014; 85018; 85461; 86850; 86900; 86901; 88305; A9270; J1885; J2250; J2704; J3010; J7120

== ENCOUNTER 2023-01-28 22:40 | Day surgery (SDC) | payer OTHER, SELFPAY ==
[2023-01-28 22:45] VITALS: BP 158/100; PULSE 104; RESP 15; TEMP 37.1; O2SAT 98
[2023-01-28 23:15] LABS: Basophils Percent Auto 0.2 % (0.2-1.2); Eosinophils Absolute Auto 0.1 K/mm3 (0-0.3); Eosinophils Percent Auto 0.5 % (0-4.4); Hemoglobin 12.2 g/dL (12.0-15.0); Immature Granulocyte Absolute 0.05 K/mm3 (0.00-0.031); Immature Granulocyte Percent A 0.4 % (0-0.5); Lymphocytes Percent Auto 25.2 % (18.3-44.2); Mean Corpuscular HGB Conc 33.9 g/dl (32-36); Mean Corpuscular Hemoglobin 32.4 pg (26-34); Mean Corpuscular Volume 95.7 fl (80-100); Mean Platelet Volume 10.6 fl (7.4-10.4); Monocytes Absolute Auto 0.7 K/mm3 (0.1-0.6); Monocytes Percent Auto 5.1 % (2.6-8.5); Neutrophils Absolute Auto 8.7 K/mm3 (1.3-6.7); Neutrophils Percent Auto 68.6 % (45.5-73.1); Platelet Count Result 316 k/mm3 (150-375); Red Blood Count 3.76 M/mm3 (4.2-5.4); Red Cell Distribution Width 11.9 % (11.5-14.5); White Blood Count 12.7 K/mm3 (4.5-10.0)
[2023-01-28 23:29] VITALS: BP 134/68; PULSE 100; RESP 14; O2SAT 96
--- NOTE | 2023-01-28 23:29 | ED.PREGNANCY ---
HPI - General Chief complaint: Vaginal Bleeding Stated complaint: vaginal bleeding, 7 weeks Time Seen by Provider: 01/28/23 23:08 History of Present Illness [facility] Narrative: Patient presents the emergency department from home with vaginal bleeding. She is accompanied by her . Patient was 7 weeks . Saw her OB doctor this morning and told that she has an IUP with a heart rate of 120. He thought that she was possibly bleeding from her cervix per the patient. However few hours prior to arrival the bleeding increased along with cramping. Patient passed products of conception at home cramping stopped but the bleeding has continued and is very heavy. Going through multiple pads an hour and every time she stands up she gushes a large amount of blood. She feels like she is getting short of breath not sure if from anxiety or blood loss Related Data Home Medications Medication Instructions Recorded Confirmed sertraline 50 mg tablet 100 mg PO DAILY 01/28/20 10/02/22 alprazolam 0.25 mg tablet 0.5 mg PO DAILY PRN anxiety 02/08/21 10/02/22 buspirone 5 mg tablet 10 mg PO BID 02/08/21 10/02/22 Allergies Allergy/AdvReac Type Severity Reaction Status Date / Time No Known Allergies Allergy Mild Verified 01/28/23 22:50 Review of Systems Review of Systems: Review of systems negative except for what is documented in the [facility] Past Medical History Medical History (Updated 01/28/23 @ 23:31 by Luz Elena Escalera MD) Anxiety Atrial flutter with rapid ventricular response ablation 2020 Engages in vaping History of anxiety Hypersomnia Obesity PAT (paroxysmal atrial tachycardia) SVT (supraventricular tachycardia) Surgical History Surgical History Complication of cardiovascular infusion catheter History of appendectomy History of cardiac radiofrequency ablation Family History Family History Father Hypertension Family history of elevated blood lipids Family history of hypercholesterolemia Other Acute myocardial infarction Cerebrovascular accident Family history of cardiovascular disease Social History Social History Smoking status: Former smoker Tobacco type: e-cigarettes/vaping Additional smoking assessment comments: Daily vape use Alcohol intake: current Drinks per week: 6 Alcohol use details: WINE 4X/WEEK WHEN NOT Substance use: current Substance use type: marijuana Living arrangements: with family Gender identity (if verbalized by the patient): Female Spiritual care concerns: No Exam Narrative: GENERAL: Well-appearing, well-nourished, and in no acute distress. HEAD: Normocephalic, atraumatic. EYES: PERRLA and EOMI. ENT: Nares clear, no rhinorrhea or epistaxis. Mucous membranes moist. NECK: Supple. CHEST: Clear to auscultation. No respiratory distress. HEART: tachycardic ABDOMEN: Soft, nontender, nondistended. EXTREMITIES: Normal range of motion. No edema. SKIN: Warm, dry, no rash. NEURO: No focal deficits. Alert and oriented x3. PSYCH: Normal mood and affect. Course Course Emergency Course: Bedside ultrasound negative for IUP. Patient is bleeding significant amount of blood. Soaked through a large pad during 5 minutes. When she stands up she gushes roughly a unit of blood onto the floor. Patient denies cramping. I consulted her TRAVEL NURSE who is coming in to take her to the OR for a D&C Vital Signs Vital signs: Vital Signs Temperature 37.1 C 01/28/23 22:45 Pulse Rate 104 H 01/28/23 22:45 Respiratory Rate 15 01/28/23 22:45 Blood Pressure 158/100 H 01/28/23 22:45 Pulse Oximetry 98 01/28/23 22:45 Oxygen Delivery Room Air 01/28/23 22:45 Temperature 37.1 C 01/28/23 22:45 Pulse Rate 100 01/28/23 23:29 Respiratory Rate 14 01/28/23
--- NOTE | 2023-01-28 23:58 | PM.IMHP ---
H&P: HPI History of Present Illness Date/Time: 01/28/23 23:58 Chief Complaint: Vaginal bleeding 7 weeks Narrative: A 27-year-old 2 para an yesterday that showed intrauterine at approximately 7 weeks. The bleeding slowly increased throughout the day until she was passing large clots. She passed a portion tissue she is presently bleeding actively. She will undergo suction dilatation curettage PMF Past Medical History Medical History Anxiety Atrial flutter with rapid ventricular response ablation 2020 Engages in vaping History of anxiety Hypersomnia Obesity PAT (paroxysmal atrial tachycardia) SVT (supraventricular tachycardia) Surgical History Surgical History Complication of cardiovascular infusion catheter History of appendectomy History of cardiac radiofrequency ablation Family History Family History Father Hypertension Family history of elevated blood lipids Family history of hypercholesterolemia Other Acute myocardial infarction Cerebrovascular accident Family history of cardiovascular disease Social History Social History Smoking status: Former smoker Tobacco type: e-cigarettes/vaping Additional smoking assessment comments: Daily vape use Alcohol intake: current Drinks per week: 6 Alcohol use details: WINE 4X/WEEK WHEN NOT Substance use: current Substance use type: marijuana Living arrangements: with family Gender identity (if verbalized by the patient): Female Spiritual care concerns: No Meds Home Medications and Allergies Home Medications Medication Instructions Recorded Confirmed Type sertraline 50 mg tablet 100 mg PO DAILY 01/28/20 10/02/22 History alprazolam 0.25 mg tablet 0.5 mg PO DAILY PRN anxiety 02/08/21 10/02/22 History buspirone 5 mg tablet 10 mg PO BID 02/08/21 10/02/22 History hydrocodone 5 mg-acetaminophen 325 1 tablet PO Q4H PRN pain #14 tabs 10/03/22 Rx mg tablet Allergies Allergy/AdvReac Type Severity Reaction Status Date / Time No Known Allergies Allergy Mild Verified 01/28/23 22:50 Vital Signs Vital Signs - 24 hr 01/28/23 22:45 01/28/23 23:29 Temperature 98.7 F Pulse Rate 104 H 100 Respiratory Rate 15 14 Blood Pressure 158/100 H 134/68 Pulse Oximetry 98 96 Oxygen Delivery Room Air Exam Const: General: cooperative, healthy appearing and comfortable Nutritional Appearance: overweight Orientation/consciousness: oriented to person, oriented to place and oriented to time HENMT: Head: normal to inspection Resp: Effort & Inspection: normal respiratory effort Cardio: Rate: regular rate Rhythm: regular rhythm Heart sounds: S1 normal heart sound present and S2 normal heart sound present GI: Inspection: normal to inspection : External Female Exam: normal external appearance Speculum Exam - Vagina: normal appearance of the vagina and vaginal bleeding Speculum Exam - Cervix: normal appearance of the cervix Bimanual exam- vagina & uterus: enlarged Bimanual Exam- Adnexa, other: normal adnexae H&P: Results Labs Labs: Short CBC 01/28/23 Range/Units 23:01 WBC 12.7 H (4.5-10.0) K/mm3 Hgb 12.2 (12.0-15.0) g/dL Hct 36.0 L (37.0-47.0) % Plt Count 316 (150-375) k/mm3 Assessment and Plan Assessment and plan (1) Vaginal bleeding affecting early : Code(s): O20.9 - Hemorrhage in early , unspecified Status: Acute (2) Incomplete : Code(s): O03.4 - Incomplete spontaneous without complication Status: Acute Plan Suction dilatation curettage
--- NOTE | 2023-01-29 | WPDHPUPDATE1 ---
History and Physical Update Update Date/Time: 01/29/23 00:00 History and Physical has been reviewed, including an updated exam of the patient. There are NO changes in the patient's condition. Risks, benefits, and alternatives have been discussed and questions answered. Patient agrees to proceed with procedure.
[2023-01-29 00:40] VITALS: BP 130/67; PULSE 102; RESP 17; O2SAT 100
--- NOTE | 2023-01-29 00:42 | WPDANESEPPF ---
Anes - Initial Pre Proc Eval Procedure: Operation Date: 01/29/23 00:30 Proposed Procedures p SUCTION DILATATION AND CURETTAGE - Billy Stephenson MD Date/Time: 01/29/23 00:42 Surgeon: Billy Stephenson MD Pre Op Diagnosis: vaginal bleeding, 7 weeks Patient Data Age: 27 Gender: F Height: 1.57 m Weight: 114 kg Last Vital Signs Temp 37.1 C 01/28/23 22:45 Pulse 102 H 01/29/23 00:40 Resp 17 01/29/23 00:40 BP 130/67 01/29/23 00:40 Pulse Ox 100 01/29/23 00:40 O2 Del Method Room Air 01/28/23 22:45 Allergies Allergy/AdvReac Type Severity Reaction Status Date / Time No Known Allergies Allergy Mild Verified 01/28/23 22:50 Home Medications Medication Instructions Recorded Confirmed Type sertraline 50 mg tablet 100 mg PO DAILY 01/28/20 10/02/22 History alprazolam 0.25 mg tablet 0.5 mg PO DAILY PRN anxiety 02/08/21 10/02/22 History buspirone 5 mg tablet 10 mg PO BID 02/08/21 10/02/22 History hydrocodone 5 mg-acetaminophen 325 1 tablet PO Q4H PRN pain #14 tabs 10/03/22 Rx mg tablet hydrocodone 5 mg-acetaminophen 325 1 tablet PO Q4H PRN pain #14 tabs 01/29/23 Rx mg tablet Laboratory Tests 01/28/23 23:01 WBC 12.7 H K/mm3 (4.5-10.0) RBC 3.76 L M/mm3 (4.2-5.4) Hgb 12.2 g/dL (12.0-15.0) Hct 36.0 L % (37.0-47.0) MCV 95.7 fl (80-100) MCH 32.4 pg (26-34) MCHC 33.9 g/dl (32-36) RDW 11.9 % (11.5-14.5) Plt Count 316 k/mm3 (150-375) MPV 10.6 H fl (7.4-10.4) Immature Gran % (Auto) 0.4 % (0-0.5) Neut % (Auto) 68.6 % (45.5-73.1) Lymph % (Auto) 25.2 % (18.3-44.2) [place] % (Auto) 5.1 % (2.6-8.5) Eos % (Auto) 0.5 % (0-4.4) Baso % (Auto) 0.2 % (0.2-1.2) Lymph # (Auto) 3.20 K/mm3 (0.9-3.2) [place] # (Auto) 0.7 H K/mm3 (0.1-0.6) Eos # (Auto) 0.1 K/mm3 (0-0.3) Baso # (Auto) 0.0 K/mm3 (0.0-0.1) Abs Immat Gran (auto) 0.05 H K/mm3 (0.00-0.031) Absolute Neuts (auto) 8.7 H K/mm3 (1.3-6.7) Absolute Nucleated RBC 0.0 K/mm3 (0.0-0.012) Nucleated RBC % 0.0 % (0.0-0.2) Beta HCG, Quant 66880.00 mIU/ML Blood Type A Positive Antibody Screen Negative Screen TNP Baby's Blood Type Not Reportable Baby's CYNDI Not Reportable Doses of RhIg Required 0 Patient hx anesthesia problems: none Family hx anesthesia problems: none Results Review: All pre-operative results and documents have been reviewed as part of the pre-operative evaluation. [facility] Past Medical History Medical History Anxiety Atrial flutter with rapid ventricular response ablation 2020 Engages in vaping History of anxiety Hypersomnia Obesity PAT (paroxysmal atrial tachycardia) SVT (supraventricular tachycardia) Surgical History Surgical History Complication of cardiovascular infusion catheter History of appendectomy History of cardiac radiofrequency ablation Family History Family History Father Hypertension Family history of elevated blood lipids Family history of hypercholesterolemia Other Acute myocardial infarction Cerebrovascular accident Family history of cardiovascular disease Social History Social History Smoking status: Former smoker Tobacco type: e-cigarettes/vaping Additional smoking assessment comments: Daily vape use Alcohol intake: current Drinks per week: 6 Alcohol use details: WINE 4X/WEEK WHEN NOT Substance use: current Substance use type: marijuana Living arrangements: with family Gender identity (if verbalized by the patient): Female Spiritual care concerns: No Anes - Eval Final PreProcedure Day of Procedure 01/29/23 00:42 Patient weight: mor
--- NOTE | 2023-01-29 01:02 | W.PM.PROC2 ---
Procedure Note - Detailed Date of Procedure 01/29/23 Pre-op Diagnosis vaginal bleeding, 7 weeks Post-op Diagnosis Same Procedure Performed Suction dilatation and curettage Surgeon Billy Stephenson MD Anesthesia General Indications 27-year-old female 7 week incomplete EB Findings Uterus sounded to 10cm. Tissue consistent products of conception Description of Procedure The patient is prepped draped in sterile fashion placed in dorsal lithotomy position. Endotracheal anesthesia weighted speculum placed in posterior fornix vagina. Anterior lip of the cervix grasped with single-tooth tenaculum. Uterus sounded to 10cm. Cervix was quite dilated so dilators were used up to size 10. The 10. Suction curette was passed in moderate amount of tissue was noted. When a good grating sound was heard the instruments withdrawn. The patient was awakened went to groups and satisfactory condition. All sponge, needle, instrument counts were correct. There were no immediate complications noted. Her blood type was Rh positive she did not require RhoGAM. Estimated Blood Loss 25 Drains No Packing No Pathology Yes Complications No immediate complications Condition Stable Disposition PACU
[2023-01-29 01:04] VITALS: BP 129/88; PULSE 120; RESP 20; TEMP 36.6; O2SAT 98
[2023-01-29] MEDS: LACTATED RINGERS 1,000 ML 30 ML IV CONT (01:04)
[2023-01-29] MEDS: SCOPOLAMINE 1.5 MG PATCH TRANSDERM (01:10)
[2023-01-29] MEDS: ONDANSETRON INJ 4 MG/2 ML VIAL IV PUSH (01:11)
[2023-01-29 01:15] VITALS: BP 101/56; PULSE 95; RESP 12; O2SAT 98
--- NOTE | 2023-01-29 01:19 | SUR.PHASEI ---
0115 - pt's wedding ring and band given to pt. placed on left hand 0119 - pt's blood type a positive
[2023-01-29 01:30] VITALS: BP 112/74; PULSE 97; RESP 16; O2SAT 99
[2023-01-29 01:35] VITALS: BP 94/77; PULSE 80; RESP 20
[2023-01-29] MEDS: oxyCODONE HCL (*CRX) 5 MG TAB IR PO (01:48)
[2023-01-29 02:10] VITALS: BP 108/65; PULSE 74; RESP 20
== END 2023-01-29 02:14 | disposition home or self-care (01) ==
LOC: ANHED 23:38 → ANHSURGERY 23:41
PROVIDERS: Emergency Provider Emergency Medicine; PCP Family Medicine; Visit Provider Obstetrics & Gynecology
PROC: (CPT 59812; principal; 2023-01-29 00:30)
DX: O03.4 Incomplete spontaneous abortion without complication (principal); O99.331 Smoking (tobacco) complicating pregnancy, first trimester; F17.290 Nicotine dependence, other tobacco product, uncomplicated; O99.321 Drug use complicating pregnancy, first trimester; F12.90 Cannabis use, unspecified, uncomplicated; Z3A.01 Less than 8 weeks gestation of pregnancy
CPT/HCPCS: 59812; 36415; 84702; 85025; 85461; 86850; 86900; 86901; 88305; 99285; A9270; J0330; J1100; J2250; J2405; J2704; J3010; J7120

== ENCOUNTER 2023-01-30 14:03 | Emergency (ER) | payer OTHER, SELFPAY ==
[2023-01-30] VITALS (7 sets, daily range): BP systolic 122–147; BP diastolic 60–86; PULSE 81–96; RESP 14–20; TEMP 36.5; O2SAT 98–100
[2023-01-30 14:33] LABS: Basophils Percent Auto 0.2 % (0.2-1.2); Eosinophils Absolute Auto 0.1 K/mm3 (0-0.3); Eosinophils Percent Auto 0.6 % (0-4.4); Hematocrit 30.7 % (37.0-47.0); Hemoglobin 10.4 g/dL (12.0-15.0); Immature Granulocyte Absolute 0.04 K/mm3 (0.00-0.031); Immature Granulocyte Percent A 0.4 % (0-0.5); Lymphocytes Absolute Auto 4.32 K/mm3 (0.9-3.2); Lymphocytes Percent Auto 39.1 % (18.3-44.2); Mean Corpuscular HGB Conc 33.9 g/dl (32-36); Mean Corpuscular Hemoglobin 32.5 pg (26-34); Mean Corpuscular Volume 95.9 fl (80-100); Monocytes Absolute Auto 0.6 K/mm3 (0.1-0.6); Monocytes Percent Auto 5.4 % (2.6-8.5); Neutrophils Percent Auto 54.3 % (45.5-73.1); Platelet Count Result 315 k/mm3 (150-375); Red Cell Distribution Width 12.1 % (11.5-14.5); White Blood Count 11.1 K/mm3 (4.5-10.0)
[2023-01-30 14:49] LABS: Alanine Aminotransferase 24 U/L (6-35); Albumin Level 4.3 g/dL (3.5-5.1); Alkaline Phosphatase 58 U/L (38-126); Anion Gap 10 mmol/L (8-16); Aspartate Amino Transferase 31 U/L (14-36); Bilirubin,Total 0.3 mg/dL (0.2-1.3); Blood Urea Nitrogen 11 mg/dL (7-17); Calcium 8.7 mg/dL (8.4-10.2); Carbon Dioxide 23 mmol/L (22-30); Chloride 104 mmol/L (98-107); Estimated CRCL calculation 167 ml/min; Estimated Glomerular Filt Rate > 60; Glucose 84 mg/dL (65-110); Potassium 3.8 mmol/L (3.4-5.0); Sodium 137 mmol/L (137-145)
[2023-01-30 15:04] LABS: Appearance Urine Cloudy (Clear); Bacteria Urine None Seen /hpf; Bilirubin Urine Negative (Negative); Blood Urine 3+ (Negative); Color Urine Dark Yellow (Yellow); Glucose Urine UA Negative (Negative); Ketones Urine Trace mg/dL (Negative); Leukocyte Esterase Ur Negative LEU/UL (Negative); Nitrate Urine Negative (Negative); Non Pathogenic Casts 0-2; Protein Urine Trace mg/dL (Negative); RBC Urine 21-50 /hpf (0-2); Specific Grav Ur 1.034 (1.001-1.035); Squamous Epithelial Cell Urine Occasional /hpf (Few); WBC Urine 0-5 /hpf; pH Urine 5.5 (5.0-9.0)
[2023-01-30 15:10] LABS: Influenza A QL RT-PCR Negative (Negative); Influenza B QL RT-PCR Negative (Negative); SARS-CoV-2 RNA PCR Negative (Negative)
[2023-01-30 15:28] LABS: Add Urine Microscopic? YES
--- NOTE | 2023-01-30 17:08 | ED.GENADULT ---
HPI - General Adult General Chief complaint: Unspecified Stated complaint: [employer] sent- D&C Saturday Time Seen by Provider: 01/30/23 15:40 History of Present Illness HPI narrative: Patient is a 27-year-old female presenting with generalized body aches. Patient states that she had an incomplete 2 days ago and underwent a D&C. States that she has had persistent vaginal bleeding since that time that has been unchanged. She denies any new or worsening abdominal pain. She states that all of her muscles feel very sore whenever she moves them. States that she does have somewhat of a sore throat whenever she swallows. Denies shortness of breath, cough, chest pain, nausea or vomiting, diarrhea. States that she has not had a bowel movement for several days which is not normal for her. Denies dysuria. No leg swelling or rashes. Patient states that she took a hydrocodone earlier for pain. Related Data Home Medications Medication Instructions Recorded Confirmed sertraline 50 mg tablet 100 mg PO DAILY 01/28/20 10/02/22 alprazolam 0.25 mg tablet 0.5 mg PO DAILY PRN anxiety 02/08/21 10/02/22 buspirone 5 mg tablet 10 mg PO BID 02/08/21 10/02/22 Allergies Allergy/AdvReac Type Severity Reaction Status Date / Time No Known Allergies Allergy Mild Verified 01/28/23 22:50 Review of Systems Review of Systems: All systems reviewed & are unremarkable except as noted in HPI and below PMFSH Past Medical History Medical History Anxiety Atrial flutter with rapid ventricular response ablation 2020 Engages in vaping History of anxiety Hypersomnia Obesity PAT (paroxysmal atrial tachycardia) SVT (supraventricular tachycardia) Surgical History Surgical History Complication of cardiovascular infusion catheter History of appendectomy History of cardiac radiofrequency ablation Family History Family History Father Hypertension Family history of elevated blood lipids Family history of hypercholesterolemia Other Acute myocardial infarction Cerebrovascular accident Family history of cardiovascular disease Social History Social History Smoking status: Former smoker Tobacco type: e-cigarettes/vaping Additional smoking assessment comments: Daily vape use Alcohol intake: current Drinks per week: 6 Alcohol use details: WINE 4X/WEEK WHEN NOT Substance use: current Substance use type: marijuana Living arrangements: with family Gender identity (if verbalized by the patient): Female Spiritual care concerns: No Exam Narrative: GENERAL: Well-appearing, well-nourished, and in no acute distress. Pleasant and cooperative HEAD: Normocephalic, atraumatic. EYES: PERRLA and EOMI. ENT: Nares clear, no rhinorrhea or epistaxis. Mucous membranes tacky NECK: Supple. CHEST: Clear to auscultation. No respiratory distress. HEART: Regular rate and rhythm ABDOMEN: Soft, nontender, nondistended. EXTREMITIES: Normal range of motion. No edema. SKIN: Warm, dry, no rash. NEURO: No focal deficits. Alert and oriented x3. PSYCH: Normal mood and affect. Course Vital Signs Vital signs: Vital Signs Temperature 97.7 F 01/30/23 14:11 Pulse Rate 92 01/30/23 14:11 Respiratory Rate 20 01/30/23 14:11 Blood Pressure 145/86 H 01/30/23 14:11 Pulse Oximetry 100 01/30/23 14:11 Oxygen Delivery Room Air 01/30/23 14:11 Temperature 97.7 F 01/30/23 14:11 Pulse Rate 96 01/30/23 19:04 Respiratory Rate 15 01/30/23 19:04 Blood Pressure 138/80 01/30/23 19:04 Pulse Oximetry 100 01/30/23 19:04 Oxygen Delivery Room Air 01/30/23 14:11 Medical Decision Making [facility] Narrative Medical decision making narrative: Patient is a 27-year-old female presenting with diff
[2023-01-30] MEDS: KETOROLAC 30 MG/ML VIAL (*BKC) IV PUSH (17:28)
[2023-01-30] MEDS: SODIUM CHLORIDE 0.9% IV 1,000 ML 999 ML IV CONT (17:28)
[2023-01-30 17:30] LABS: Creatine Kinase 294 U/L (30-135)
== END 2023-01-30 19:41 | disposition home or self-care (01) ==
PROVIDERS: Emergency Medicine; Emergency Provider Emergency Medicine; PCP Family Medicine
DX: M79.10 Myalgia, unspecified site (principal); E86.0 Dehydration; Z20.822 Contact with and (suspected) exposure to COVID-19; E66.9 Obesity, unspecified; Z68.42 Body mass index [BMI] 45.0-49.9, adult; F41.9 Anxiety disorder, unspecified; F17.290 Nicotine dependence, other tobacco product, uncomplicated
CPT/HCPCS: 36415; 80053; 81001; 82550; 85025; 87636; 96361; 96374; 99284; J1885; J7030

== ENCOUNTER 2023-02-03 12:58 | Emergency (ER) | payer OTHER, SELFPAY ==
--- NOTE | ~2023-02-03 | US_ITS ---
EXAMINATION: US pelvic complete w TV DATE: 02/03/2023 15:23 INDICATION: Pain and vaginal bleeding post D&C TECHNIQUE: Multiple transabdominal and endovaginal sonographic images of the pelvis were obtained. COMPARISON: 09/19/2022 FINDINGS: The uterus measures 8.4 x 4.2 x 6.0 cm. The endometrial complex measures 10 mm in thickness. There i s hyperechoic material, likely representing clot, within the endometrial canal to lower uterine segme nt extending into the endocervical canal measures up to 10 mm in thickness. The right ovary measures 2.8 x 1.8 x 3.0 cm. The left ovary measures 2.8 x 2.1 x 2.0 cm. Vascular flow identified in both ovar ies on color Doppler. There is no free fluid in the pelvis. IMPRESSION: 1. Hyperechoic material likely representing clot within the lower endometrial canal as well as the en docervical canal. Reviewed, dictated and finalized at location A. IMPRESSION: 1. Hyperechoic material likely representing clot within the lower endometrial c anal as well as the endocervical canal.
[2023-02-03 12:59] VITALS: BP 134/93; PULSE 99; RESP 18; TEMP 36.6; O2SAT 100
[2023-02-03 13:37] LABS: Basophils Percent Auto 0.2 % (0.2-1.2); Eosinophils Absolute Auto 0.1 K/mm3 (0-0.3); Eosinophils Percent Auto 0.9 % (0-4.4); Hematocrit 35.6 % (37.0-47.0); Hemoglobin 12.1 g/dL (12.0-15.0); Immature Granulocyte Absolute 0.05 K/mm3 (0.00-0.031); Immature Granulocyte Percent A 0.4 % (0-0.5); Lymphocytes Absolute Auto 3.12 K/mm3 (0.9-3.2); Lymphocytes Percent Auto 25.3 % (18.3-44.2); Mean Corpuscular Hemoglobin 32.8 pg (26-34); Mean Corpuscular Volume 96.5 fl (80-100); Mean Platelet Volume 10.7 fl (7.4-10.4); Monocytes Absolute Auto 0.3 K/mm3 (0.1-0.6); Monocytes Percent Auto 2.4 % (2.6-8.5); Neutrophils Absolute Auto 8.7 K/mm3 (1.3-6.7); Neutrophils Percent Auto 70.8 % (45.5-73.1); Platelet Count Result 394 k/mm3 (150-375); Red Blood Count 3.69 M/mm3 (4.2-5.4); Red Cell Distribution Width 12.2 % (11.5-14.5); White Blood Count 12.3 K/mm3 (4.5-10.0)
[2023-02-03 14:07] LABS: Albumin Level 4.5 g/dL (3.5-5.1); Alkaline Phosphatase 52 U/L (38-126); Aspartate Amino Transferase 29 U/L (14-36); Bilirubin,Total 0.4 mg/dL (0.2-1.3); Blood Urea Nitrogen 11 mg/dL (7-17); Carbon Dioxide 25 mmol/L (22-30); Chloride 106 mmol/L (98-107); Estimated CRCL calculation 141 ml/min; Estimated Glomerular Filt Rate > 60; Glucose 96 mg/dL (65-110)
[2023-02-03 14:08] LABS: Alanine Aminotransferase 22 U/L (6-35); Anion Gap 9 mmol/L (8-16); Calcium 9.4 mg/dL (8.4-10.2); Potassium 4.3 mmol/L (3.4-5.0); Sodium 140 mmol/L (137-145)
--- NOTE | 2023-02-03 14:56 | PC.NURSE ---
pt taken to ultrasound at this time
--- NOTE | 2023-02-03 15:29 | ED.GENADULT ---
HPI - General Adult General Chief complaint: Recheck/Abnormal Lab/Rx Stated complaint: dnc complications since saturday Time Seen by Provider: 02/03/23 13:42 Source: patient Mode of arrival: ambulatory History of Present Illness HPI narrative: This is a 27-year-old female who is s/p day 6 following a D&C who presents to the ED with chief complaint of generalized body aches, vaginal bleeding and lower abdominal pain. She reports the D&C was for a incomplete spontaneous . She was seen here on 01/30/2023 for similar presentation. She reports since then she has had increasing body aches and passing blood clots. She contacted her OB office who to come to the ER to rule out infection. Denies vaginal discharge or urinary symptoms. States the abdominal pain comes and goes. Also endorses some sore throat. Denies any further complaint. Related Data Home Medications Medication Instructions Recorded Confirmed sertraline 50 mg tablet 100 mg PO DAILY 01/28/20 10/02/22 alprazolam 0.25 mg tablet 0.5 mg PO DAILY PRN anxiety 02/08/21 10/02/22 buspirone 5 mg tablet 10 mg PO BID 02/08/21 10/02/22 Allergies Allergy/AdvReac Type Severity Reaction Status Date / Time No Known Allergies Allergy Mild Verified 01/28/23 22:50 Review of Systems Review of Systems: All systems as dictated in HPI [facility] Past Medical History Medical History Anxiety Atrial flutter with rapid ventricular response ablation 2020 Engages in vaping History of anxiety Hypersomnia Obesity PAT (paroxysmal atrial tachycardia) SVT (supraventricular tachycardia) Surgical History Surgical History Complication of cardiovascular infusion catheter History of appendectomy History of cardiac radiofrequency ablation Family History Family History Father Hypertension Family history of elevated blood lipids Family history of hypercholesterolemia Other Acute myocardial infarction Cerebrovascular accident Family history of cardiovascular disease Social History Social History Smoking status: Former smoker Tobacco type: e-cigarettes/vaping Additional smoking assessment comments: Daily vape use Alcohol intake: current Drinks per week: 6 Alcohol use details: WINE 4X/WEEK WHEN NOT Substance use: current Substance use type: marijuana Living arrangements: with family Gender identity (if verbalized by the patient): Female Spiritual care concerns: No Exam Narrative: GENERAL: Well-appearing, well-nourished, and in no acute distress. HEAD: Normocephalic, atraumatic. EYES: PERRLA and EOMI. ENT: Nares clear, no rhinorrhea or epistaxis. Mucous membranes moist. Oropharynx without tonsillar hypertrophy exudate or other lesions. NECK: Supple. No adenopathy or masses. CHEST: No respiratory distress. Clear to auscultation. No wheezes rales or rhonchi HEART: Regular rate and rhythm. No murmur heard. Normal peripheral pulses. ABDOMEN: Soft, nontender, nondistended, normal active bowel sounds. MSK: Normal range of motion. No edema. SKIN: Warm, dry, no rash. NEURO: Alert and oriented x3. No focal deficits. PSYCH: Normal mood and affect. Course Course Emergency Course: Spoke with Dr. Angulo: Recommends starting on Augmentin twice a day for a week. Recommends following up in clinic in a couple of days as she is not toxic appearing. Vital Signs Vital signs: Vital Signs Temperature 97.9 F 02/03/23 12:59 Pulse Rate 99 02/03/23 12:59 Respiratory Rate 18 02/03/23 12:59 Blood Pressure 134/93 H 02/03/23 12:59 Pulse Oximetry 100 02/03/23 12:59 Oxygen Delivery Room Air 02/03/23 12:59 Temperature 97.9 F 02/03/23 12:59 Pulse Rate 78 02/03/23 17:11 Respiratory Rate 16 01/18
[2023-02-03] MEDS: KETOROLAC 15 MG/ML VIAL (*BKC) IV PUSH (15:40)
[2023-02-03 15:43] VITALS: BP 139/85; PULSE 87; RESP 18; O2SAT 98
[2023-02-03 16:54] LABS: Strep Group A RT-PCR NOT DETECTED (Negative)
[2023-02-03 17:05] LABS: Influenza A QL RT-PCR Negative (Negative); Influenza B QL RT-PCR Negative (Negative); RSV RNA, RT-PCR Negative (Negative); SARS-CoV-2 RNA PCR Negative (Negative)
[2023-02-03 17:11] VITALS: BP 136/84; PULSE 78; RESP 16; O2SAT 99
== END 2023-02-03 17:11 | disposition home or self-care (01) ==
PROVIDERS: Emergency Medicine; Emergency Provider Physician Assistant; PCP Family Medicine
DX: N99.820 Postprocedural hemorrhage of a genitourinary system organ or structure following a genitourinary system procedure (principal); Y83.8 Other surgical procedures as the cause of abnormal reaction of the patient, or of later complication, without mention of misadventure at the time of the procedure; F41.9 Anxiety disorder, unspecified; F17.290 Nicotine dependence, other tobacco product, uncomplicated; F12.90 Cannabis use, unspecified, uncomplicated; Z20.822 Contact with and (suspected) exposure to COVID-19
CPT/HCPCS: 36415; 76830; 76856; 80053; 85025; 86850; 86900; 86901; 87637; 87651; 96374; 99284; J1885

== ENCOUNTER 2025-02-19 21:27 | Observation (INO) | payer OTHER, SELFPAY ==
--- OUTSIDE RECORDS SUMMARY | 2025-02-19 21:35 | XMS_ITS | Clinical Summary ---
Author Organization [facility] Address [address] [place] [address] Care Team Providers Care Art Objects Repairer Name Role Phone Bouchra Murphy NP Unavailable [phone] Celestina Howell NP Primary Care Provider Billy Guillaume MD Unavailable [phone] Allergies No known active allergies Medications * This document contains information received from the source organization and may not represent a complete record from that organization. sertraline (ZOLOFT) 100 mg tabletIndication s:Generalized anxiety disorder Take 1 tablet (100 mg total) by mouth daily 90 tablet 3 5 08/06/19 26 Active Zepbound 15 mg/0.5 mL pen injectorIndicati ons:Class 2 obesity with body mass index (BMI) of 37.0 to 37.9 in adult, unspecified obesity type, unspecified whether serious comorbidity present ADMINISTER 15 MG UNDER THE SKIN EVERY 7 DAYS 6 mL 1 5 Active ALPRAZolam (XANAX) 0.5 mg tablet Take 1 tablet (0.5 mg total) by mouth daily as needed for anxiety 30 tablet 5 Active fluticasone propionate (FLONASE) 50 mcg/actuation nasal sprayIndications :Acute serous otitis media of left ear, recurrence not specified Administer 2 sprays into each nostril daily 1 each 5 Active Active Problems Problem Noted Date Diagnosed Date Insomnia 04/06/2024 Assessment & Plan (08/05/2024 2:41 PM CDT): -Chronic, suboptimally controlled -patient reports difficulty with falling asleep and staying asleep -previously she has used sleep pain with minimal relief -trazodone 50 mg provided no relief -encouraged patient to try using melatonin at dinnertime for her to take better effect when she goes to bed -Can consider other alternatives if not improved -continue current treatment plan Assessment & Plan (04/07/2024 9:17 AM REGULATORY COMPLIANCE OFFICER): -new complaint -patient reports difficulty with falling asleep and staying asleep -previously he has used sleep pain with minimal relief -trazodone 50 mg nightly as needed prescribed -encouraged patient to reach out to office if not improved -continue current treatment plan Vitamin D deficiency 03/02/2024 Anemia 01/30/2024 Generalized anxiety disorder 07/31/2022 Assessment & Plan (08/05/2024 2:40 PM CDT): -chronic, controlled -patient currently takes sertraline 100 mg -has Xanax 0.5 mg daily as needed which he uses sparingly -Patient reports experiencing some difficulty with anxiety when she trialed off of sertraline which has since resolved with restarting her sertraline -patient denies any worsening of depressed mood, thoughts of harming herself or others, or worsening anxiety -discuss risks of long-term benzodiazepine use -refill of medication provided -continue current treatment plan Assessment & Plan (04/07/2024 9:11 AM REGULATORY COMPLIANCE OFFICER): -chronic, stable -patient currently takes sertraline 100 mg -has Xanax 0.5 mg daily as needed which he uses sparingly -patient denies any worsening of depressed mood, thoughts of harming herself or others, or worsening anxiety -discuss risks of long-term benzodiazepine use -refill of medication provided -continue current treatment plan Class 1 obesity with body ma ss index (BMI) of 34.0 to 34.9 in adult 11/10/2021 Assessment & Plan (08/05/2024 2:28 PM CDT): Wt Readings from Last 3 Encounters: 08/05/24 84.4 kg (186 lb 1.6 oz) 04/06/24 94 kg (207 lb 4.8 oz) 03/03/24 97.1 kg (214 lb) Body mass index is 34.03 kg/m . -Stable, not at goal of <30 bmi -Discussed recommendations for exercise at least 30 minutes moderate to vigorous exercise as tolerated most days of the week. (minimum 150 minutes weekly) -Discussed importance of well-balanced diet -starting weight of 258 lbs -currently takes zepbound 15 mg weekly -continue current treatment plan Assessment & Plan (04/07/2024 9:18 AM REGULATORY COMPLIANCE OFFICER): Wt Readings from Last 3 Encounters: 04/06/24 94 kg (207 lb 4.8 oz) 03/03/24 97.1 kg (214 lb) 02/10/24 98.3 kg (216 lb 12.8 oz) Body mass index is 37.91 kg/m . -Stable, not at goal of <30 bmi -Discussed recommendations for exercise at least 30 minutes moderate to vigorous exercise as tolerated most days of the week. (minimum 150 minutes weekly) -Discussed importance of well-balanced diet -currently takes zepbound 15 mg weekly -refill of medication provided -continue current treatment plan Panic attack as reaction to stress 11/26/2017 Assessment & Plan (08/05/2024 2:40 PM CDT): -chronic, controlled -patient currently takes sertraline 100 mg -has Xanax 0.5 mg daily as needed which she uses sparingly -patient denies any worsening of depressed mood, thoughts of harming herself or others, or worsening anxiety -discuss risks of long-term benzodiazepine use -continue current treatment plan Assessment & Plan (04/07/2024 9:10 AM REGULATORY COMPLIANCE OFFICER): -chronic, stable -patient currently takes sertraline 100 mg -has Xanax 0.5 mg daily as needed which he uses sparingly -patient denies any worsening of depressed mood, thoughts of harming herself or others, or worsening anxiety -discuss risks of long-term benzodiazepine use -refill of medication provided -continue current treatment plan Assessment & Plan (11/26/2017 4:01 PM CDT): She lost her primary physician recently due to insurance coverage and will be seeking a new 1 meanwhile she needs refills on all of her medication which I will do Atrial tachycardia 06/26/2017 Overview (04/06/2024): seen by [facility] Preventative health care 05/08/2017 Assessment & Plan (04/07/2024 9:18 AM REGULATORY COMPLIANCE OFFICER): - New or chronic worsening conditions: Insomnia - Mental health: Stable anxiety - Dental health: Up to date with regular dental care and cleaning. Discussed importance of regular tooth brushing, flossing, and dental visits. - Nutrition: Stressed importance of moderation in sodium/caffeine intake, saturated fat and cholesterol, caloric balance, sufficient intake of fresh fruits, vegetables - Exercise: Stressed the importance of regular exercise - Immunizations: Age and sex appropriate immunizations reviewed and offered - Cervical Cancer screening: up to date - Breast Cancer screening: Not indicated at this time - Colon cancer screening: Not indicated at this time - Lung cancer screening: Not indicated at this time - Bone desnity/osteoporosis screening: Not indicated at this time - control: IUD Status post placement of implantable loop record er 03/29/2017 Overview (03/29/2017): Medt Linq implant 03/29/17 for palpitations f/u [facility] Assessment & Plan (06/06/2017 12:23 PM REGULATORY COMPLIANCE OFFICER): Removed 04/19/17 Assessment & Plan (04/26/2017 1:30 PM REGULATORY COMPLIANCE OFFICER): Infection of her LINQ monitor followed by LINQ removal on 04/19/2017. She will be continued on Keflex for 4 more days. I will re-evaluate her site on 05/08/2017. Assessment & Plan (04/09/2017 3:00 PM REGULATORY COMPLIANCE OFFICER): Placement of a LINQ implantable loop recorder on 03/29/2017. Continue transtelephonic monitoring. History of supraventricular tachycardia 08/26/19 16 Overview (08/25/2016): SVT (supraventricular tachycardia) Assessment & Plan (04/07/2024 10:06 AM REGULATORY COMPLIANCE OFFICER): -chronic, stable -currently does not require medication for this -previous history of cardiac ablation -follows with cardiology -patient denies any chest pain, palpitations, shortness breath -continue current treatment plan Assessment & Plan (11/26/2017 3:55 PM CDT): Since she is taking the flecainide and the carvedilol once a day I reminded her that it both are b.i.d. drugs and she will take him twice a day. Hopefully this will settle down her arrhythmia. Ideally she would like some time away from any medical procedures and when she is ready will follow up with Dr. Chaidez for what I think is important 2nd procedure to completely eradicate the SVT Assessment & Plan (05/08/2017 3:26 PM REGULATORY COMPLIANCE OFFICER): Impression 1. Paroxysmal atrial tachycardia. The patient has evidence for recurrent palpitations and tachycardia after what was previously an otherwise successful catheter ablation, with resolution of a suspected tachycardia mediated cardiomyopathy. She did well for prolonged period time but recently has had palpitations as well as documented atrial tachycardia. Recent initiation of flecainide has resulted in symptomatic suppression. Repeat catheter ablation is likely best. In view of the origin near the pulmonary vein, and evidence for recurrence, 1 option may be to perform antral ablation. It is also possible the patient has a 2nd arrhythmia mechanism. 2. Cardiomyopathy. Tachycardia mediated. Resolved following ablation. Will reassess. Plan Continue flecainide 100 mg b.i.d. and Coreg ECHO Following echo will decide on repeat EPS and ablation. Will perform MARGOT day prior. Assessment & Plan (04/19/2017 12:33 PM REGULATORY COMPLIANCE OFFICER): Impression 1. Paroxysmal atrial tachycardia. The patient has evidence for recurrent palpitations and tachycardia after what was previously an otherwise successful catheter ablation, with resolution of a suspected tachycardia mediated cardiomyopathy. She did well for prolonged period time but recently has had palpitations as well as documented atrial tachycardia. Repeat catheter ablation is likely best. In view of the origin near the pulmonary vein, and evidence for recurrence, 1 option may be to perform antral ablation. It is also possible the patient has a 2nd arrhythmia mechanism. Unfortunately the patient has infection of an ILR implanted by Dr. Del Valle and Dr. Del Valle plans explantation. I will initiate antiarrhythmic therapy follow up with the patient then plan for repeat EPS Plan Continue Coreg ILR management per Dr. Del Valle Flecainide 100 mg b.i.d. Follow-up with me Assessment & Plan (04/09/2017 3:00 PM REGULATORY COMPLIANCE OFFICER): Recurrent nonsustained SV tach Assessment & Plan (03/08/2017 2:54 PM CDT): The patient has a history of supraventricular tachycardia. She is status post radiofrequency therapy on 10/28/2015. Continue to monitor for recurrent tachycardia Resolved Problems Problem Noted Date Diagnosed Date Resolved Date Left upper quadrant pain 03/02/2024 Rib pain 03/02/2024 04/06/2024 Overview (04/06/2024): left jesus-lateral . Sprain of distal tibiofibular ligament 02/10/2024 04/06/2024 Acute generalized body pain 07/23/2023 04/06/2024 Acute pharyngitis 07/23/2023 04/06/2024 Otitis media 07/23/2023 04/06/2024 Upper respiratory infection 02/07/2023 04/06/2024 NSVT (nonsustained ventricular tachycardia) 04/28/2021 04/06/2024 Overview (04/28/2021): Added automatically from request for surgery [id number] Congestive cardiomyopathy 08/26/2015 Overview (08/23/2016): Dilated cardiomyopathy Assessment & Plan (11/25/2017 4:52 PM CDT): Continue antiarrhythmic care and Coreg Assessment & Plan (04/09/2017 2:59 PM REGULATORY COMPLIANCE OFFICER): Patient has a history of tachycardia induced cardiomyopathy which has improved post radiofrequency therapy of recurrent atrial tachycardia. RF therapy was October 28, 2015. Her LV ejection fraction is improved from 28-31% now to 52% in July 2016 by echo. Continue medical care and treatment Assessment & Plan (03/08/2017 2:56 PM CDT): Patient has a history of dilated cardiomyopathy with normal coronaries. On 09/12/2015 she had cardiac catheterization revealing normal coronaries with diffuse hypokinesis left ventricle. She was determined to have narrow complex tachycardia and has undergone radiofrequency therapy on 10/28/2015 for treatment of that condition. Continue beta blockade. EKG today Palpitations 07/23/2012 04/06/2024 Assessment & Plan (11/26/2017 3:56 PM CDT): Babs has had several episodes of palpitations in the last several months, with the longest episode lasting about 10-15 minutes. Her EKG today is within normal limits. Since her ablation procedure she had to have a LINQ removed due to infection but has had prove that she was having recurrent SVT. Her EKG today is within normal limits Tachycardia, unspecified 07/18/2012 Immunizations Immunization Administration Dates Next Due Influenza, Quadrivalent, Spl it, Preservative Free, Intramuscular 05/01/2022 Influenza, Trivalent, Preservative Free, Intramu scular 03/02/2024 MMR 01/08/2024,12/06/2023 Surgical History Surgery Date Site/Laterality Comments CARDIAC CATHETERIZATION 08/19/2015 - 09/17/2015 normal CARDIAC ASSIST DEVICE INSERTION 05/20/2016 - 05/19/2017 Reveal LINQ LNQ11 serial number [id number] APPENDECTOMY [address] UDY AND ABLATION DILATION AND CURETTAGE OF UTERUS x2 ; 2022 Medical History Medical History Date Comments Superficial thrombophlebitis SVT Anxiety disorder Anxiety Dilated cardiomyopathy (HCC) Hypertension Atrial fibrillation (HCC) NSVT (nonsustained ventricul ar tachycardia) (HCC) 04/28/2021 Added automatically from req uest for surgery [id number] Palpitations 07/23/2012 Family History Medical History Relation Name Comments Hyperlipidemia Father Hyperlipidemi a; Hypertension Father COPD Maternal Grandfather Cancer Maternal Grandfather No Known Problems Maternal Grandmother Hyperlipidemia Mother Heart attack Paternal Grandfather Stroke Paternal Grandmother No Known Problems Sister Relation Name Status Comments Father Alive Maternal Grandfather Maternal Grandmother Alive Mother Alive Paternal Grandfather Paternal Grandmother Sister Alive Social History Tobacco Use Types Packs/Day Years Used Date Smoking Tobacco: Light Smoker Vaping Smokeless Tobacco: Never Tobacco Cessation:Ready to Q uit: Not Asked; Counseling Given: Not Answered Comments:e-cigarette Alcohol Use Standard Drinks/Week Comments Yes 0 (1 standard drink = 0.6 oz pur e alcohol) AUDIT-C Answer Date Recorded Q1: How often do you have a drink containing alc ohol? 2-4 times a month 08/05/2024 Q2: How many drinks containi ng alcohol do you have on a typical day when you are drinking? 1 or 2 08/05/2024 Q3: How often do you have si x or more drinks on one occasion? Less than monthly 08/05/2024 PHQ-2 Answer Date Recorded PHQ-2 Total Score (If total score is 3 or more points, staff should administer the PHQ-9) 0 08/05/2024 Personal Safety Answer Date Recorded Have you ever been in or are you currently in a harmful physical or emotional relationship or is someone making you feel afraid or unsafe? Denies 03/03/2024 Comments No Sex and Gender Information Value Date Recorded Sex Assigned at Not on file Legal Sex Female 4:40 PM REGULATORY COMPLIANCE OFFICER Gender Identity Female 06/23/2021 12:15 PM REGULATORY COMPLIANCE OFFICER Sexual Orientation Straight 06/23/2021 12 :15 PM REGULATORY COMPLIANCE OFFICER Obstetrics History Last Filed Vital Signs Vital Sign Reading Time Taken Comments Blood Pressure 120/78 09/17/2024 4:55 PM CDT Pulse 79 09/17/2024 4:55 PM CDT Temperature 37 C (98.6 F) 09/17/2024 4:55 PM CDT Respiratory Rate 20 09/17/2024 4:55 PM CDT Oxygen Saturation 98% 09/17/2024 4:55 PM CDT Inhaled Oxygen Concentration - - Weight 83.9 kg (185 lb) 09/17/2024 4:55 PM CDT Height 157.5 cm (5' 2) 09/17/2024 4:55 PM CDT Body Mass Index 33.84 09/17/2024 4:55 PM CDT Plan of Treatment Health Maintenance Due Date Last Done Comments Cervical Cancer Screening 1994 Hepatitis C Screening 1994 DTaP/Tdap/Td Vaccine (1 - Tdap) 2005 Hepatitis B Screening 02/13/2012 Pneumococcal vaccine <65 (1 of 2 - PCV) 2013 HPV Vaccines (1 - 3-dose SCD M series) 2021 Covid-19 Vaccine (4 - 2024-2 6 season) 2025 05/04/2021, 09/04/2020, 08/14/2020 Influenza Vaccine (#1) 2025 03/02/2024, 2021 Regular Well Visit/Exam 18-64 04/06/2025 04/06/2024, 04/06/2024 Depression Screening 08/05/2025 08/05/2024, 04/06/20 24 Varicella Vaccines Discontinued Medical Devices Implanted Type Area Fiber Machine Tender Device Identifier Shelf Expiration Date Model / Serial / Lot [employer] [id number] System 6-12fr Mvp Venous Closure Vascade - [id number] - [id number] Implanted:Qty: 1 on 05/18/2021 by Rodrigo Chaidez MD at [facility] [employer] 03/02/2023 800-612C- 10U / [id number] / [id number] [employer] [id number] System 6-12fr Mvp Venous Closure Vascade - [id number] - [id number] Implanted:Qty: 1 on 05/18/2021 by Rodrigo Chaidez MD at [facility] [employer] 03/02/2023 800-612C- 10U / [id number] [id number] / [id number] [employer] [id number] System 6-12fr Mvp Venous Closure Vascade - [id number] - [id number] Implanted:Qty: 1 on 05/18/2021 by Rodrigo Chaidez MD at [facility] [employer] 02/28/2023 800-612C- 10U / [id number] [id number] / [id number] [employer] [id number] Device Closure Vascade Od5 Fr Femoral Artery - [id number] - [id number] Implanted:Qty: 1 on 05/18/2021 by Rodrigo Chaidez MD at [facility] [employer] 12/05/2022 [id number] -05U / [id number] / [id number] Implantable Loop Recorder-2016 Implanted:03/29 (Quantity not on file) Explanted:04/22 (Quantity not on file) Implantable Loop Recorder Chest [employer] Cardiac Rhythm Mgmt LINQ / [id number] / Insurance [employer] [facility] EMPLOYEES [employer] Care Teams Art Objects Repairer Relationship Specialty Start Date End Date Celestina Howell NP [address] [place] [address] [address] PCP - General Family Medicine 04/06/24 Bouchra Murphy NP Nurse Practitioner Cardiology 05/18/21 Billy Guillaume MD [id number] [facility] [address] [place] [id number] Referring Physician Obstetrics and Gynecology 04/06/24
[2025-02-19 21:43] VITALS: TEMP 37.1
[2025-02-19 21:51] VITALS: BP 132/74; PULSE 74
[2025-02-19 22:00] VITALS: BP 137/72; PULSE 75; BMI 43.2
--- NOTE | 2025-02-19 22:00 | OBADM ---
This patient, Babs Toro, admitted to the OB room OB Post 116 for observation. Patient/family oriented to hospital policies and general routines including ID bracelet, bed and alarms, visiting hours, pain management, procedures, bathroom and other care routines, personal items, smoking policy, room service/diet, and visiting hours. Patient/Family are encouraged to report perceived risks to care and to ask questions if they do not understand what they are told or what they should do.
[2025-02-19 22:15] VITALS: BP 136/64; PULSE 82
[2025-02-19 22:18] LABS: Add Urine Microscopic? YES; Appearance Urine Cloudy (Clear); Glucose Urine UA Negative (Negative); Leukocyte Esterase Ur Trace LEU/UL (Negative); Nitrate Urine Negative (Negative); Non Pathogenic Casts 0-2; Specific Grav Ur 1.016 (1.001-1.035)
[2025-02-19 22:30] VITALS: BP 135/71; PULSE 76
--- NOTE | 2025-02-19 22:44 | PC.NURSE ---
Pt discharged home undelivered in stable condition per order from Dr. Ribeiro. Discharge instructions reviewed and given to pt, pt stated understanding, all questions and concerns answered. Pt ambulated out of department with all belongings, S.O @ pt side.
--- NOTE | 2025-03-17 21:49 | PM.OBTRLD ---
OB - Triage/Final Diagnosis Visit Information Comments/Additional reasons for admission: I have assessed the risk for this patient, Babs Toro, and determined that she would benefit from observation care. Evaluation Laboratory results: Laboratory Tests 02/19/25 22:04 Urine Color Yellow Urine Appearance Cloudy H Urine pH 7.0 Ur Specific [place] 1.016 Urine Protein Negative Urine Glucose (UA) Negative Urine Ketones Negative Ur Blood (Man) 2+ H Urine Nitrate Negative Urine Bilirubin Negative Urine Urobilinogen 1.0 Leukocyte Esterase Rfl Trace H Urine RBC 21-50 H Urine WBC 0-5 Ur Squamous Epith Cells None seen Urine Bacteria None seen Urine Casts 0-2 Final Diagnosis (1) Incomplete : Code(s): O03.4 - Incomplete spontaneous without complication Status: Acute
== END 2025-02-19 22:44 | disposition home or self-care (01) ==
PROVIDERS: Admitting Provider Obstetrics & Gynecology; Visit Provider Obstetrics & Gynecology
DX: O03.4 Incomplete spontaneous abortion without complication (principal); Z3A.25 25 weeks gestation of pregnancy
CPT/HCPCS: 81001; G0378; G0379

== ENCOUNTER 2025-03-25 11:04 | Outpatient (CLI) | payer OTHER, SELFPAY ==
--- NOTE | 2025-03-25 11:10 | ECG_ITS ---
Test Date: 2025-03-25 11:18:28 Measurements Intervals [place] Rate: 86 P: 32 MD: 168 QRS: 38 QRSD: 86 T: 26 QT: 369 QTc: 444 Interpretive Statements SINUS RHYTHM POSSIBLE LEFT ATRIAL ENLARGEMENT [-0.1mV P-WAVE IN V1/V2] RSR' IN V1 OR V2, PROBABLY NORMAL VARIANT No previous ECG available for comparison Electronically Signed On 03-25-2025 11:33:12 ORE CRUSHER by Turner Shoemaker M.D.
--- OUTSIDE RECORDS SUMMARY | 2025-03-25 19:01 | XMS_ITS | Clinical Summary ---
Author Organization [facility] Address [address] [place] [address] Care Team Providers Care Clocksmith Name Role Phone Bouchra Murphy NP Unavailable [phone] Celestina Howell NP Primary Care Provider Billy Guillaume MD Unavailable [phone] Allergies No known active allergies Medications * [...] plan Assessment & Plan (04/07/2024 9:17 AM DIRECTOR OF ORTHOPEDICS): -new complaint -patient reports difficulty with falling [...] plan Assessment & Plan (04/07/2024 9:11 AM DIRECTOR OF ORTHOPEDICS): -chronic, stable -patient currently takes sertraline 100 [...] plan Assessment & Plan (04/07/2024 9:18 AM DIRECTOR OF ORTHOPEDICS): Wt Readings from Last 3 Encounters: 04/06/24 [...] plan Assessment & Plan (04/07/2024 9:10 AM DIRECTOR OF ORTHOPEDICS): -chronic, stable -patient currently takes sertraline 100 [...] Atrial tachycardia 06/26/2017 Overview (04/06/2024): seen by [facility] Cardiology Preventative health care 05/08/2017 Assessment & Plan (04/07/2024 9:18 AM DIRECTOR OF ORTHOPEDICS): - New or chronic worsening conditions: Insomnia [...] Carelink Assessment & Plan (06/06/2017 12:23 PM DIRECTOR OF ORTHOPEDICS): Removed 04/19/17 Assessment & Plan (04/26/2017 1:30 PM DIRECTOR OF ORTHOPEDICS): Infection of her LINQ monitor followed by LINQ removal on 04/19/2017. She will be continued on Keflex for 4 more days. I will re-evaluate her site on 05/08/2017. Assessment & Plan (04/09/2017 3:00 PM DIRECTOR OF ORTHOPEDICS): Placement of a LINQ implantable loop recorder on 03/29/2017. Continue transtelephonic monitoring. History of supraventricular tachycardia 08/26/19 16 Overview (08/25/2016): SVT (supraventricular tachycardia) Assessment & Plan (04/07/2024 10:06 AM DIRECTOR OF ORTHOPEDICS): -chronic, stable -currently does not require medication [...] SVT Assessment & Plan (05/08/2017 3:26 PM DIRECTOR OF ORTHOPEDICS): Impression 1. Paroxysmal atrial tachycardia. The patient [...] prior. Assessment & Plan (04/19/2017 12:33 PM DIRECTOR OF ORTHOPEDICS): Impression 1. Paroxysmal atrial tachycardia. The patient [...] me Assessment & Plan (04/09/2017 3:00 PM DIRECTOR OF ORTHOPEDICS): Recurrent nonsustained SV tach Assessment & Plan [...] (04/28/2021): Added automatically from request for surgery [id number] Congestive cardiomyopathy 08/26/2015 Overview (08/23/2016): Dilated cardiomyopathy Assessment & Plan (11/25/2017 4:52 PM CDT): Continue antiarrhythmic care and Coreg Assessment & Plan (04/09/2017 2:59 PM DIRECTOR OF ORTHOPEDICS): Patient has a history of tachycardia induced [...] is within normal limits Tachycardia, unspecified 07/18/2012 Encounters Date Type Department Care Team Description 03/11/2025 Immunization [facility] Medicine Occupational Health [address] [place] [address] Lyric Chávez RN from Last 3 Months Immunizations Immunization Administration Dates Next Due Influenza, Quadrivalent, Spl it, Preservative Free, Intramuscular 05/01/2022 Influenza, Trivalent, Cell C ulture-based MDCK, Preservative Free, Antibiotic Free, Intramuscular 03/11/2025 Influenza, Trivalent, Preservative Free, Intramu scular 03/02/2024 MMR 01/08/2024,12/06/2023 Surgical History Surgery Date Site/Laterality Comments CARDIAC CATHETERIZATION 08/19/2015 - 09/17/2015 normal CARDIAC ASSIST DEVICE INSERTION 05/20/2016 - 05/19/2017 Reveal LINQ LNQ11 serial number [id number] APPENDECTOMY [address] UDY AND ABLATION DILATION AND CURETTAGE OF UTERUS x2 ; 3 Medical History Medical History Date Comments Superficial thrombophlebitis SVT Anxiety disorder Anxiety Dilated cardiomyopathy (HCC) Hypertension Atrial fibrillation (HCC) NSVT (nonsustained ventricul ar tachycardia) (HCC) 04/28/2021 Added automatically from [facility] uest for surgery [id number] Palpitations 07/23/2012 Family History Medical History Relation [...] on file Legal Sex Female 4:40 PM DIRECTOR OF ORTHOPEDICS Gender Identity Female 06/23/2021 12:15 PM DIRECTOR OF ORTHOPEDICS Sexual Orientation Straight 06/23/2021 12 :15 PM DIRECTOR OF ORTHOPEDICS Last Filed Vital Signs Vital Sign Reading [...] 2024-2 6 season) 2025 05/04/2021, 09/04/2020, 08/14/2020 Regular Well Visit/Exam 18-64 04/06/2025 04/06/2024, 04/06/2024 Depression Screening 08/05/2025 08/05/2024, 04/06/20 24 Influenza Vaccine Completed 03/11/2025, , 05/01/2022 Varicella Vaccines Discontinued Medical Devices Implanted Type Area Experimental Mechanic Electrical Device Identifier Shelf Expiration Date Model / Serial / Lot [employer] [id number] System 6-12fr Mvp Venous Closure Vascade - [id number] - [id number] Implanted:Qty: 1 on 05/18/2021 by Rodirgo Chaidez MD at [facility] [employer] 03/02/2023 800-612C- 10U / [id number] 18A / [id number] [employer] [id number] System 6-12fr Mvp Venous Closure Vascade - [id number] - [id number] Implanted:Qty: 1 on 05/18/2021 by Rodrigo Chaidez MD at [facility] [employer] 03/02/2023 800-612C- 10U / [id number] 18A / [id number] [id number] [employer] [id number] System 6-12fr Mvp Venous Closure Vascade - [id number] - [id number] Implanted:Qty: 1 on 05/18/2021 by Rodrigo Chaidez MD at [facility] [employer] 02/28/2023 800-612C- 10U / [id number] 19A / [id number] [id number] [employer] [id number] Device Closure Vascade Od5 Fr Femoral Artery - [id number] - [id number] Implanted:Qty: 1 on 05/18/2021 by Rodrigo Chaidez MD at [facility] [employer] 12/05/2022 [id number] -05U / [id number] 720A / [id number] Implantable Loop Recorder-2016 Implanted:03/29 (Quantity not on file) Explanted:04/22 (Quantity not on file) Implantable Loop Recorder Chest [employer] Cardiac Rhythm Mgmt LINQ / [id number] / Insurance [facility] [employer] [facility] H[employer]/PPO Address: [address] [address] [employer] [employer]PPO Address: [place] [address] [facility] [facility] [employer] [employer]/PPO Address: [place] [address] Care Teams Clocksmith Relationship Specialty Start Date End Date Celestina Howell NP 2 [facility] [address] [address] PCP - General Family Medicine 04/06/24 Bouchra Murphy NP Nurse Practitioner Cardiology 05/18/21 Billy Guillaume MD [address] [facility] [address] [address] Referring Physician Obstetrics and Gynecology 04/06/24
== END 2025-03-25 11:05 | disposition home or self-care (01) ==
LOC: ANHCARD 11:07
PROVIDERS: Visit Provider Obstetrics & Gynecology
DX: R55 Syncope and collapse (principal)
CPT/HCPCS: 93005

== ENCOUNTER 2025-05-09 16:57 | Outpatient (CLI) | payer OTHER, SELFPAY ==
[2025-05-09] VITALS (23 sets, daily range): BP systolic 137–153; BP diastolic 59–83; PULSE 73–86; O2SAT 96–99; BMI 47.5
--- OUTSIDE RECORDS SUMMARY | 2025-05-09 17:02 | XMS_ITS | Clinical Summary ---
Author Organization [facility] Address [address] [place] [address] Care Team Providers Care Fire Management Officer Name Role Phone Bouchra Murphy NP Unavailable [phone] Celestina Howell NP Primary Care Provider Billy Guillaume MD Unavailable [phone] Allergies No known active allergies Medications * This document contains information received from the source organization and may not represent a complete record from that organization. sertraline (ZOLOFT) 100 mg tabletIndicatio ns:Generalized anxiety disorder Take 1 tablet (100 mg total) by mouth daily 90 tablet 3 5 08/06/19 26 Active Zepbound 15 mg/0.5 mL pen injectorIndicat ions:Class 2 obesity with body mass index (BMI) of 37.0 to 37.9 in adult, unspecified obesity type, unspecified whether serious comorbidity present ADMINISTER 15 MG UNDER THE SKIN EVERY 7 DAYS 6 mL 1 5 Active Additional Information Patient not taking.Reported on 05/04/2025 ALPRAZolam (XANAX) 0.5 mg tablet Take 1 tablet (0.5 mg total) by mouth daily as needed for anxiety 30 tablet 5 Active fluticasone propionate (FLONASE) 50 mcg/actuation nasal sprayIndication s:Acute serous otitis media of left ear, recurrence not specified Administer 2 sprays into each nostril daily 1 each 5 Active amoxicillin-cla vulanate (AUGMENTIN) 875-125 mg per tabletIndicatio ns:Non-recurren t acute suppurative otitis media of left ear without spontaneous rupture of tympanic membrane Take 1 tablet by mouth 2 (two) times a day for 5 days 10 tablet 5 05/01/20 25 Additional Information Patient not taking.Reported on 05/02/2025 Active Problems Problem Noted Date Diagnosed Date [...] Assessment & Plan (04/07/2024 9:17 AM DIRECTOR LIFE): -new complaint -patient reports difficulty with falling [...] Assessment & Plan (04/07/2024 9:11 AM DIRECTOR LIFE): -chronic, stable -patient currently takes sertraline 100 [...] Assessment & Plan (04/07/2024 9:18 AM DIRECTOR LIFE): Wt Readings from Last 3 Encounters: 04/06/24 [...] Assessment & Plan (04/07/2024 9:10 AM DIRECTOR LIFE): -chronic, stable -patient currently takes sertraline 100 [...] Atrial tachycardia 06/26/2017 Overview (04/06/2024): seen by [facility] Cardiology Preventative health care 05/08/2017 Assessment & Plan (04/07/2024 9:18 AM DIRECTOR LIFE): - New or chronic worsening conditions: Insomnia [...] Assessment & Plan (06/06/2017 12:23 PM DIRECTOR LIFE): Removed 04/19/17 Assessment & Plan (04/26/2017 1:30 PM DIRECTOR LIFE): Infection of her LINQ monitor followed by LINQ removal on 04/19/2017. She will be continued on Keflex for 4 more days. I will re-evaluate her site on 05/08/2017. Assessment & Plan (04/09/2017 3:00 PM DIRECTOR LIFE): Placement of a LINQ implantable loop recorder on 03/29/2017. Continue transtelephonic monitoring. History of supraventricular tachycardia 08/26/19 16 Overview (08/25/2016): SVT (supraventricular tachycardia) Assessment & Plan (04/07/2024 10:06 AM DIRECTOR LIFE): -chronic, stable -currently does not require medication [...] Assessment & Plan (05/08/2017 3:26 PM DIRECTOR LIFE): Impression 1. Paroxysmal atrial tachycardia. The patient [...] Assessment & Plan (04/19/2017 12:33 PM DIRECTOR LIFE): Impression 1. Paroxysmal atrial tachycardia. The patient [...] Assessment & Plan (04/09/2017 3:00 PM DIRECTOR LIFE): Recurrent nonsustained SV tach Assessment & Plan (03/08/2017 2:54 PM CDT): The patient has a history of supraventricular tachycardia. She is status post radiofrequency therapy on 10/28/2015. Continue to monitor for recurrent tachycardia Estimated Date of Delivery Comme nts Yes 06/04/2025 Resolved Problems Problem Noted Date Diagnosed Date Resolved Date Left upper quadrant pain 03/02/2024 Rib pain 03/02/2024 04/06/2024 Overview (04/06/2024): left jesus-lateral . Sprain of distal tibiofibular ligament 02/10/2024 04/06/2024 Acute generalized body pain 07/23/2023 04/06/2024 Acute pharyngitis 07/23/2023 04/06/2024 Otitis media 07/23/2023 04/06/2024 Upper respiratory infection 02/07/2023 04/06/2024 NSVT (nonsustained ventricular tachycardia) 04/28/2021 04/06/2024 Overview (04/28/2021): Added automatically from request for surgery [id number] Congestive cardiomyopathy 08/26/2015 Overview (08/23/2016): Dilated cardiomyopathy Assessment & Plan (11/25/2017 4:52 PM CDT): Continue antiarrhythmic care and Coreg Assessment & Plan (04/09/2017 2:59 PM DIRECTOR LIFE): Patient has a history of tachycardia induced [...] Encounters Date Type Department Care Team Description 05/04/2025 11:30 AM DIRECTOR LIFE Procedure visit [facility] Medicine Otolaryngology [address] [place] [address] [address] [place] [phone] Rell Bell Au.D. Sensorineural hearing loss (SNHL) of both ears (Primary Dx) 05/04/2025 9:40 AM DIRECTOR LIFE Office Visit [facility]) - [facility] Medicine ENT [id number] [place] [address] Office [address] [place] [phone] Kathleen Chopra, QASIM Pressure sensation in both ears (Primary Dx); Earache on left; History of ear infections 05/02/2025 8:30 AM DIRECTOR LIFE Office Visit [facility] [place] [address] [place] [address] Lianet Valadez NP Catarrh of left eustachian tube (Primary Dx) 04/26/2025 5:15 PM DIRECTOR LIFE Office Visit [facility] [place] [address] [place] [address] Gini Willis, QASIM Non-recurrent acute suppurative otitis media of left ear without spontaneous rupture of tympanic membrane (Primary Dx) 04/26/2025 Telephone [facility] Care at [address] [place] [address] Celestina Howell NP Appointment Request 03/11/2025 Immunization [facility] Medicine Occupational Health [address] 5th [address] [place] [address] Lyric Chávez RN from Last 3 Months Immunizations Immunization Administration Dates Next Due Influenza, Quadrivalent, Spl it, Preservative Free, Intramuscular 05/01/2022 Influenza, Trivalent, Cell C ulture-based MDCK, Preservative Free, Antibiotic Free, Intramuscular 03/11/2025 Influenza, Trivalent, Preservative Free, Intramu scular 03/02/2024 MMR 01/08/2024,12/06/2023 Tdap 03/18/2025 Surgical History Surgery Date Site/Laterality Comments CARDIAC CATHETERIZATION 08/19/2015 - 09/17/2015 normal CARDIAC ASSIST DEVICE INSERTION 05/20/2016 - 05/19/2017 Reveal LINQ LNQ11 serial number [id number] APPENDECTOMY [address] UDY AND ABLATION DILATION AND CURETTAGE OF UTERUS x2 ; 2022 Medical History Medical History Date Comments Superficial thrombophlebitis SVT Anxiety disorder Anxiety Dilated cardiomyopathy (HCC) Hypertension Atrial fibrillation (HCC) NSVT (nonsustained ventricul ar tachycardia) (HCC) 04/28/2021 Added automatically from req uest for surgery [id number] Palpitations 07/23/2012 Family History Medical History Relation [...] you feel afraid or unsafe? Denies 03/03/2024 Estimated Date of Delivery Comme nts Yes 06/04/2025 Sex and Gender Information Value Date Recorded Sex Assigned at Not on file Legal Sex Female 4:40 PM DIRECTOR LIFE Gender Identity Female 06/23/2021 12:15 PM DIRECTOR LIFE Sexual Orientation Straight 06/23/2021 12 :15 PM DIRECTOR LIFE Obstetrics History Para Term AB IAB SAB Ectopic Multiple Livin g Live Births 1 Date Outcome GA Total Labor Labor/2nd/3rd Weight Sex Type Anes PTL Amber A1 A5 Name Clin Current Last Filed Vital Signs Vital Sign Reading Time Taken Comments Blood Pressure 126/70 05/02/2025 8:31 AM DIRECTOR LIFE Pulse 97 05/02/2025 8:31 AM DIRECTOR LIFE Temperature 36.9 C (98.4 F) 05/02/2025 8:31 AM DIRECTOR LIFE Respiratory Rate 18 05/02/2025 8:31 AM DIRECTOR LIFE Oxygen Saturation 97% 05/02/2025 8:31 AM DIRECTOR LIFE Inhaled Oxygen Concentration - - Weight 117.9 kg (260 lb) 05/04/2025 9:43 AM DIRECTOR LIFE Height 157.5 cm (5' 2) 05/04/2025 9:43 AM DIRECTOR LIFE Body Mass Index 47.55 05/04/2025 9:43 AM DIRECTOR LIFE Plan of Treatment Health Maintenance Due Date Last Done Comments Cervical Cancer Screening 1994 Hepatitis C Screening 1994 Hepatitis B Screening 02/13/2012 Pneumococcal vaccine <65 (1 of 2 - PCV) 2013 HPV Vaccines (1 - 3-dose SCD M series) 2021 Regular Well Visit/Exam 18-64 04/06/2025 04/06/2024, 04/06/2024 Depression Screening 08/05/2025 08/05/2024, 04/06/20 24 DTaP/Tdap/Td Vaccine (2 - Td or Tdap) 03/18/2035 03/18/2025 Influenza Vaccine Completed 03/11/2025, , 05/01/2022 Covid-19 Vaccine Completed 03/18/2025, , 09/04/2020, Additional history exists Varicella Vaccines Discontinued Medical Devices Implanted Type Area Health Services Director Device Identifier Shelf Expiration Date Model / Serial / Lot [employer] [id number] System 6-12fr Mvp Venous Closure Vascade - [id number] - [id number] Implanted:Qty: 1 on 05/18/2021 by Rodrigo Chaidez MD at [facility] Collagen [employer] 03/02/2023 800-612C- 10U / [id number] 18A / [id number] 18A [employer] [id number] System 6-12fr Mvp Venous Closure Vascade - [id number] - [id number] Implanted:Qty: 1 on 05/18/2021 by Rodrigo Chaidez MD at [facility] [employer] 03/02/2023 800-612C- 10U / [id number] 18A / [id number] 18A [employer] [id number] System 6-12fr Mvp Venous Closure Vascade - [id number] - [id number] Implanted:Qty: 1 on 05/18/2021 by Rodrigo Chaidez MD at [facility] [employer] 02/28/2023 800-612C- 10U / [id number] 19A / [id number] 19A [employer] [id number] Device Closure Vascade Od5 Fr Femoral Artery - [id number] - [id number] Implanted:Qty: 1 on 05/18/2021 by Rodrigo Chaidez MD at [facility] [employer] 12/05/2022 700-500DX -05U / [id number] 720A / [id number] Implantable Loop Recorder-2016 Implanted:03/29 (Quantity not on file) Explanted:04/22 (Quantity not on file) Implantable Loop Recorder Chest [employer]DVMtronic Cardiac Rhythm Mgmt LINQ / [id number] S / Procedures Procedure Name Priority Date/Time Associated Diagnosis Comments AUDBASE RESULTS 05/04/2025 10:11 AM DIRECTOR LIFE POCT RAPID STREP Routine 04/26/2025 5:40 PM DIRECTOR LIFE Non-recurrent acute suppurative otitis media of left ear without spontaneous rupture of tympanic membrane from Last 3 Months Results * AudBase Results (05/04/2025 10:11 AM DIRECTOR LIFE) us Provider Scanning AUDIOLOGY SERVICES ORDERABLES Final Result * POCT rapid strep A (04/26/2025 5:40 PM DIRECTOR LIFE) Rapid Strep A, POC Negative Negative Swab 04/26/2025 5:40 PM DIRECTOR LIFE Gini Willis AGRICULTURE LABORATORY TECHNICIAN POINT OF CARE TEST ORDERABLES Final Result from Last 3 Months Insurance [employer] Care Teams Fire Management Officer Relationship Specialty Start Date End Date Celestina Howell NP [address] [place] [address] [address] [place] [address] PCP - General Family Medicine 04/06/24 Bouchra Murphy NP Nurse Practitioner Cardiology 05/18/21 Billy Guillaume MD [address] [address] Referring Physician Obstetrics and Gynecology 04/06/24
--- NOTE | 2025-05-09 17:21 | PM.OBTRLD ---
OB - Triage/Final Diagnosis Visit Information Date of evaluation: 05/09/25 Reason for evaluation: other (headache/abdominal pain) Comments/Additional reasons for admission: I have assessed the risk for this patient, Babs Toro, and determined that she would benefit from observation care. Evaluation Vital signs: Vital Signs - 24 hr 05/09/25 17:08 05/09/25 17:13 05/09/25 17:18 Pulse Oximetry 98 98 97
[2025-05-09 17:23] LABS: Hematocrit 33.9 % (37.0-47.0); Hemoglobin 11.7 g/dL (12.0-15.0); Immature Granulocyte Percent A 0.4 % (0-0.5); Lymphocytes Absolute Auto 1.93 K/mm3 (0.9-3.2); Mean Corpuscular HGB Conc 34.5 g/dl (32-36); Mean Corpuscular Hemoglobin 32.6 pg (26-34); Mean Corpuscular Volume 94.4 fl (80-100); Nucleated Red Blood Cells Absolute Auto 0.000 K/mm3 (0.0-0.012); Nucleated Red Blood Cells Perc 0.0 % (0.0-0.2); Platelet Count Result 228 k/mm3 (150-375); Red Blood Count 3.59 M/mm3 (4.2-5.4); White Blood Count 10.3 K/mm3 (4.5-10.0)
[2025-05-09 17:35] LABS: Alanine Aminotransferase 13 U/L (6-35); Albumin Level 3.5 g/dL (3.5-5.1); Alkaline Phosphatase 96 U/L (38-126); Anion Gap 5 mmol/L (4-12); Aspartate Amino Transferase 18 U/L (14-36); Bilirubin,Total 0.3 mg/dL (0.2-1.3); Blood Urea Nitrogen 7 mg/dL (7-17); Calcium 9.4 mg/dL (8.4-10.2); Carbon Dioxide 21 mmol/L (22-30); Chloride 109 mmol/L (98-107); Estimated Glomerular Filt Rate > 60; Glucose 87 mg/dL (65-110); Potassium 4.0 mmol/L (3.4-5.0); Sodium 135 mmol/L (137-145); Total Protein 6.7 g/dL (6.3-8.2); Uric Acid 4.2 mg/dL (2.5-7.5)
[2025-05-09 17:39] LABS: Add Urine Microscopic? YES; Appearance Urine Clear (Clear); Glucose Urine UA Negative (Negative); Leukocyte Esterase Ur 1+ LEU/UL (Negative); Need Manual Microscopic Reviewed; Nitrate Urine Negative (Negative); Non Pathogenic Casts 0-2; Specific Grav Ur 1.010 (1.001-1.035)
[2025-05-09 17:40] LABS: Total Protein Urine Random 18 mg/dL; Ur Ttl Prot Creatinine Ratio 0.49 mg/mg (0-0.20)
[2025-05-11 10:19] LABS: Serum Creat 0.40; Total Protein Urine Random 16 mg/dL
[2025-05-11 11:08] LABS: Creatinine Clearance Urine 193.0 ml/min (75-125); Specific Gravity Ur 1.010; Total Protein Urine 24 Hr 432 mg/24hr (28-141); Total Volume 24 Hour Urine 2700 ml
== END 2025-05-09 19:15 | disposition home or self-care (01) ==
LOC: ANHOBOP 17:00 → ANHOBPP 17:00
PROVIDERS: Visit Provider Obstetrics & Gynecology
DX: O13.5 Gestational [pregnancy-induced] hypertension without significant proteinuria, complicating the puerperium (principal)
CPT/HCPCS: 36415; 59025; 80053; 81001; 81050; 82570; 82575; 84156; 84550; 85025; 87086; 99199

== ENCOUNTER 2025-05-11 17:10 | Outpatient (CLI) | payer OTHER, SELFPAY ==
[2025-05-11 17:31] VITALS: BP 131/66; PULSE 80
[2025-05-11 17:46] VITALS: BP 123/70; PULSE 86
[2025-05-11 17:52] LABS: Hematocrit 33.4 % (37.0-47.0); Hemoglobin 11.5 g/dL (12.0-15.0); Immature Granulocyte Percent A 0.5 % (0-0.5); Lymphocytes Absolute Auto 2.08 K/mm3 (0.9-3.2); Mean Corpuscular HGB Conc 34.4 g/dl (32-36); Mean Corpuscular Hemoglobin 32.5 pg (26-34); Mean Corpuscular Volume 94.4 fl (80-100); Nucleated Red Blood Cells Absolute Auto 0.000 K/mm3 (0.0-0.012); Nucleated Red Blood Cells Perc 0.0 % (0.0-0.2); Platelet Count Result 223 k/mm3 (150-375); Red Blood Count 3.54 M/mm3 (4.2-5.4); White Blood Count 12.0 K/mm3 (4.5-10.0)
[2025-05-11 17:56] LABS: Add Urine Microscopic? YES; Appearance Urine Clear (Clear); Glucose Urine UA Negative (Negative); Leukocyte Esterase Ur 1+ LEU/UL (Negative); Nitrate Urine Negative (Negative); Non Pathogenic Casts 0-2; Specific Grav Ur 1.016 (1.001-1.035)
[2025-05-11 18:01] VITALS: BP 134/72; PULSE 87
[2025-05-11 18:05] LABS: Alanine Aminotransferase 12 U/L (6-35); Albumin Level 3.4 g/dL (3.5-5.1); Alkaline Phosphatase 103 U/L (38-126); Anion Gap 5 mmol/L (4-12); Aspartate Amino Transferase 17 U/L (14-36); Bilirubin,Total 0.3 mg/dL (0.2-1.3); Blood Urea Nitrogen 7 mg/dL (7-17); Calcium 8.8 mg/dL (8.4-10.2); Carbon Dioxide 19 mmol/L (22-30); Chloride 109 mmol/L (98-107); Estimated Glomerular Filt Rate > 60; Glucose 93 mg/dL (65-110); Potassium 3.9 mmol/L (3.4-5.0); Sodium 133 mmol/L (137-145); Total Protein 6.5 g/dL (6.3-8.2); Uric Acid 4.0 mg/dL (2.5-7.5)
[2025-05-11 18:08] LABS: Total Protein Urine Random 38 mg/dL; Ur Ttl Prot Creatinine Ratio 0.57 mg/mg (0-0.20)
[2025-05-11 18:18] VITALS: BP 131/66; PULSE 87
== END 2025-05-11 18:30 | disposition home or self-care (01) ==
LOC: ANHOBOP 17:15 → ANHOBPP 17:16
PROVIDERS: Visit Provider Obstetrics & Gynecology
DX: O13.9 Gestational [pregnancy-induced] hypertension without significant proteinuria, unspecified trimester (principal); Z3A.00 Weeks of gestation of pregnancy not specified
CPT/HCPCS: 36415; 59025; 80053; 81001; 82570; 84156; 84550; 85025; 87086; 99199

== ENCOUNTER 2025-05-18 08:39 | Outpatient (RCR) | payer OTHER, SELFPAY ==
[2025-04-24 00:10] VITALS: BP 149/73; PULSE 78
--- NOTE | 2025-04-24 01:13 | PC.NURSE ---
Called Dr. Gregorio Stephenson. Informed that pt states that she has noticed some wetness. ROM pus done that was negative, but large amount of fluid noted on bed after swab. Second ROM plus done with new lot number that was also negative. No further fluid noted. May D/C home with precautions.
[2025-04-24 01:26] LABS: OBXCEM ROM Plus Negative (Negative)
[2025-04-24 01:26] LABS: OBXCEM ROM Plus Negative (Negative)
--- NOTE | 2025-04-24 05:26 | PM.OBTRLD ---
OB - Triage/Final Diagnosis Visit Information Date of evaluation: 04/23/25 Reason for evaluation: decreased movement Comments/Additional reasons for admission: I have assessed the risk for this patient, Babs Toro, and determined that she would benefit from observation care. Evaluation Laboratory results: Laboratory Tests 04/24/25 04/24/25 00:45 01:10 Membranes Rupture Rom plus negative Rom plus negative Vital signs: Vital Signs - 24 hr 04/24/25 00:10 Pulse Rate 78 Blood Pressure [Left Arm] 149/73 H
[2025-05-18 10:13] VITALS: BP 137/79; PULSE 82
== END 2025-05-18 23:59 | disposition home or self-care (01) ==
LOC: ANHOBOP 08:39
PROVIDERS: PCP Family Medicine; Visit Provider Obstetrics & Gynecology
DX: O36.8120 Decreased fetal movements, second trimester, not applicable or unspecified (principal); Z3A.23 23 weeks gestation of pregnancy; O36.8130 Decreased fetal movements, third trimester, not applicable or unspecified; Z3A.34 34 weeks gestation of pregnancy; O14.93 Unspecified pre-eclampsia, third trimester; Z3A.37 37 weeks gestation of pregnancy
CPT/HCPCS: 59025; 84112